=== PATIENT | female | born 1980 ===

== ENCOUNTER 2020-05-26 09:49 | Outpatient (REF) | payer OTHER, SELFPAY | END 2020-05-26 09:50 | disposition home or self-care (01) | LOC: HO.LAB 09:49 | PROVIDERS: Visit Provider Internal Medicine | DX: Z20.822 Contact with and (suspected) exposure to COVID-19 (principal) | CPT/HCPCS: 36415; C9803; U0003; U0005 ==

== ENCOUNTER 2020-10-20 15:20 | Emergency (ER) | payer OTHER, SELFPAY ==
[2020-10-20] VITALS (16 sets, daily range): BP systolic 186–226; BP diastolic 102–122; PULSE 65–97; RESP 12–17; TEMP 36.9; O2SAT 98–100; BMI 30.3
--- NOTE | ~2020-10-20 | XR_ITS ---
EXAMINATION: XR CHEST CLINICAL INFORMATION: Chest pain. COMPARISON: Chest 08/11/2015. TECHNIQUE: Frontal view of the chest was obtained. FINDINGS: The lungs are fairly well-expanded and clear of acute process. The heart size and pulmonary vascularity is normal. 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 XR/XR chest 1V IMPRESSION: Unremarkable chest exam. No major change from 08/11/2015.
--- NOTE | 2020-10-20 15:28 | ECG_ITS ---
Test Reason : CHEST PAIN Blood Pressure : / mmHG Vent. Rate : 084 BPM Atrial Rate : 084 BPM P-R Int : 156 ms QRS Dur : 102 ms QT Int : 374 ms P-R-T Axes : 060 016 000 degrees QTc Int : 441 ms Normal sinus rhythm Voltage criteria for left ventricular hypertrophy Abnormal ECG When compared with ECG of 28-AUG-2018 13:45, No significant change was found Referred By: Leona Roberson Electronically Signed By:LAUREN HENRY
--- NOTE | 2020-10-20 15:39 | ED.CHESTPAIN ---
HPI - Chest Pain General Chief Complaint: Chest Pain Stated Complaint: CP S/P 1ST COVID VACC Time Seen by Provider: 10/20/20 15:28 Source: patient Mode of arrival: ambulatory Limitations: no limitations History of Present Illness HPI narrative: 40 yo female with past medical history of fibromyalgia, HTN not currently on medications here with complaints of chest discomfort, headache and throat itching for 30 minutes. Patient tells me that she received her COVID vaccine at 14:00. This was her 1st vaccine. She received the pfizer vaccine.. Shortly after she developed her symptoms. She received 1 sublingual nitro and Zofran prior to arrival by EMS. She does not feel like this change her pain at all. No radiation of pain in the chest. No associated shortness of breath, cough or palpitations. Denies feeling anxious. No vomiting, diarrhea, itching, rash, tongue or lip swelling or itching. No previous history of allergies. Related Data Home Medications Medication Instructions Recorded Confirmed gabapentin 800 mg tablet 800 mg PO TID 02/06/20 tramadol 50 mg tablet 50 mg PO Q6H PRN 02/11/20 baclofen 10 mg tablet 10 mg PO TID 04/09/20 Previous Rx's Medication Instructions Recorded gabapentin 800 mg tablet 800 mg PO TID #90 tab 02/06/20 clonidine HCl 0.1 mg tablet 0.1 mg PO TID #90 tab 03/16/20 baclofen 10 mg tablet 10 mg PO TID #90 tab 04/09/20 gabapentin 800 mg tablet 800 mg PO TID 30 Days #90 tab 06/22/20 amitriptyline 10 mg tablet 10 mg PO BEDTIME 90 Days #90 tab 07/12/20 tramadol 50 mg tablet 50 mg PO Q4-6H PRN 30 Days #180 tab 09/20/20 amlodipine [Norvasc] 5 mg PO DAILY #14 tab 10/20/20 metoprolol tartrate [Lopressor] 25 mg PO DAILY #14 tab 10/20/20 zolpidem 12.5 mg tablet,extended 12.5 mg PO BEDTIME PRN 30 Days #30 10/20/20 release,multiphase tab Allergies Allergy/AdvReac Type Severity Reaction Status Date / Time No Known Allergies Allergy Unverified 12/12/19 16:53 non known allergies Allergy Unknown Uncoded 07/05/18 00:00 Review of Systems Review of Systems: Yes all other systems are reviewed and are negative Constitutional: Constitutional: Reports no additional constitutional complaints, Denies body ache(s), Denies chills, Denies fever(s), Reports headache(s) and Denies weakness Eyes: Eyes: Reports no additional eye complaints and Denies change in vision ENT: Reports system reviewed and no additional complaints, except as documented, Denies dizziness, Reports headache(s), Denies nasal congestion, Denies nasal discharge and Denies neck pain Comments: throat itching Cardiovascular: Cardiovascular: Reports no additional cardiovascular complaints, Reports chest pain, Denies leg edema and Denies dyspnea Respiratory: Respiratory: Reports no additional respiratory complaints, Denies cough and Denies dyspnea Gastrointestinal: Gastrointestinal: Reports no additional gastrointestinal complaints, Denies abdominal pain, Denies diarrhea, Denies nausea and Denies vomiting Genitourinary: Genitourinary: Reports no additional female genitourinary complaints and Denies urinary incontinence Musculoskeletal: Musculoskeletal: Reports no additional musculoskeletal complaints, Denies back pain, Denies arthralgias, Denies joint swelling, Denies neck pain, Denies numbness and Denies tingling Integumentary/Breasts: Skin/Breast: Reports system reviewed and no additional complaints, except as docu and Denies rash Neurologic: Reports system reviewed and no additional complaints, except as documented, Denies Abnormal speech present, Denies dizziness, Reports headache(s), Denies numbness, Denies tingling and Denies weakness PMFSH Past Medical History Attestation statement: The following information was validated with the patient. Source: old records reviewed and nursing notes reviewed Social History Social History Advance Directives: No Advance Directives Information Provided: No Physical Exam Vital Signs: Vital Signs: Last Vital Signs Temp 98.4 F 10/20/20 15:26 Pulse 74 10/20/20 22:59 Resp 16 10/20/20 22:59 BP 205/111 H 10/20/20 22:59 Pulse Ox 99 10/20/20 22:59 Body Mass Index 30.3 Const: General: cooperative, healthy appearing, comfortable and no acute distress Orientation/consciousness: patient oriented x3 Limitations: no limitations HENMT: Head: Yes normal to inspection Ears: hearing grossly normal bilaterally General nose exam: Normal external nose present Face and sinus: Yes normal facial exam Mouth: Normal oral and palatal mucosa present Throat: Yes posterior oropharynx normal Eyes: General: appearance normal, both eyes and all related structures Pupils: Equal, round and reactive pupils present Neck: Neck: Yes normal visual inspection Chest: Other: Right chest worsened with deep breathing Chest palpation & inspection: normal inspection of the chest Resp: Effort & Inspection: normal respiratory effort Auscultation: clear to auscultation bilaterally Cardio: Rate: regular rate Rhythm: regular rhythm Peripheral pulses: Peripheral pulses 2+ throughout GI: Inspection: Yes normal to inspection Palpation (GI): Soft to palpation and nontender Auscultation: normal bowel sounds Back/Spine/Pelvis: Thoracic/Lumbar Spine: thoracic and lumbar spine normal to inspection Skin: General skin exam: no rashes or lesions noted Neuro: General: patient oriented x3, no focal motor deficits and normal sensation to monofilament Cranial nerves: Yes Equal, round and reactive pupils present Cognition (Neuro): normal cognition Speech: No Abnormal speech present Gait exam (Neuro): Normal gait present Motor exam (neuro): 5/5 motor strength present throughout Extrem: General: Yes normal to inspection, Yes no pedal edema and Yes no calf tenderness Course Course Course Narrative: 40-year-old female here with complaints of right chest pain, generalized headache and throat itching after receiving her COVID vaccine. ?anxiety. No other symptoms concerning for anaphylaxis. Also noted to be hypertensive (off medications for years). Received sublingual nitro prior to arrival with no improvement of symptoms. Will give EKG, CXR, labs. Provide toradol, benadryl and re-assess. 1650-EKG shows LVH with no new changes. Her initial troponin is 19. This is likely a troponin leak from uncontrolled hypertension. Pain is mild after 30 mg of IV Toradol now rated 2/10. Less likely ACS. However, will check a repeat troponin in 3 hours. More importantly the blood pressure is still elevated even with improvement of symptoms. This is likely chronic hypertension which is uncontrolled. No headache or vomiting concerning for hypertensive crisis. Will give aspirin 324 mg, place nitro paste on chest for blood pressure control, give p.o. Lopressor and repeat in 1 hour as needed. Labs show microcytic anemia-patient tells me this is chronic. Seem by hematology several times. Thought to be combination of both OUMOU and B12 deficiency. Patient has not been taking her iron/B12 supplements. 1830-2nd troponin delta (likely chronically elevated from uncontrolled hypertension). EKG unchanged. Goal blood pressure 180/95. Current blood pressure 186/105. Will repeat dose of Lopressor. Plan for dispo home after. 2100-Unfortunately no change in blood pressure. Patient is asymptomatic at this time. Serial EKG's unchanged. Discussed with Dr Deal. Plan for norvasc trial and following BP. 2300-Sign out to Dr Deal pending re-evaluation. MDM - Chest Pain MDM Narrative Medical decision making narrative: anxiety, acs, hypertensive crisis, allergic reaction Medical Records Data Attestation: I reviewed the patient's medical records. Lab Data Attestation: I reviewed the patient's lab results. Result diagrams: 10/20/20 15:59 10/20/20 16:15 Labs: Lab Results 10/20/20 10/20/20 10/20/20 Range/Units 15:59 15:59 15:59 WBC 7.9 (4.8-10.8) X10*3/uL RBC 4.85 (4.20-5.50) X10*6/uL Hgb 9.5 L (12.0-16.0) g/dl Hct 32.3 L (37-47) % MCV 66.6 L (80-98) fL MCH 19.6 L (27.0-33.0) pg MCHC 29.4 L (31.0-35.0) g/dl RDW 17.4 H (11.0-16.0) % Plt Count 376 (160-400) X10*3/uL MPV 9.7 (9.4-12.3) fL Immature Gran % (Auto) 0.3 (0.0-0.4) % Neut % (Auto) 62.4 (45-73) % Lymph % (Auto) 31.5 (20-40) % [place] % (Auto) 5.0 (2-11) % Eos % (Auto) 0.4 (0-4) % Baso % (Auto) 0.4 (0-2) % Lymph # (Auto) 2.5 (1.2-4.9) X10*3/uL [place] # (Auto) 0.4 (0.1-1.2) X10*3/uL Eos # (Auto) 0.0 (0.0-0.4) X10*3/uL Baso # (Auto) 0.0 (0.0-0.2) X10*3/uL Abs Immat Gran (auto) 0.02 (0.00-0.03) X10*3/uL Absolute Neuts (auto) 5.0 (2.0-8.3) X10*3/uL Absolute Nucleated RBC 0.000 (0.0-0.012) X10*3/uL Nucleated RBC % (auto) 0.0 (0.0-0.2) /100WBC PT (9.9-13.0) SEC INR (0.9-1.1) Sodium (135-145) mmol/L Potassium (3.3-5.1) mmol/L Chloride (96-108) mmol/L Carbon Dioxide (22-29) mmol/L Anion Gap (12-20) BUN (9-16) mg/dL Creatinine (0.5-1.4) mg/dL Estim Creat Clear Calc Estimated GFR Random Glucose (60-115) mg/dL Calcium (8.4-10.2) mg/dL Magnesium (1.6-2.6) mg/dL Total Bilirubin (0.0-1.0) mg/dL Direct Bilirubin (0.0-0.5) mg/dL AST (5-31) U/L ALT (0-31) U/L Alkaline Phosphatase (39-117) U/L Troponin I High Sens 19.9 H* (<3.5-17.0) ng/L Total Protein (6.5-8.0) g/dL Albumin (3.5-5.0) g/dL COVID-19 (ROSANNA) Negative (Negative) COVID-19 Clin Com See Note 10/20/20 10/20/20 10/20/20 Range/Units 15:59 16:15 19:29 WBC (4.8-10.8) X10*3/uL RBC (4.20-5.50) X10*6/uL Hgb (12.0-16.0) g/dl Hct (37-47) % MCV (80-98) fL MCH (27.0-33.0) pg MCHC (31.0-35.0) g/dl RDW (11.0-16.0) % Plt Count (160-400) X10*3/uL MPV (9.4-12.3) fL Immature Gran % (Auto) (0.0-0.4) % Neut % (Auto) (45-73) % Lymph % (Auto) (20-40) % [place] % (Auto) (2-11) % Eos % (Auto) (0-4) % Baso % (Auto) (0-2) % Lymph # (Auto) (1.2-4.9) X10*3/uL [place] # (Auto) (0.1-1.2) X10*3/uL Eos # (Auto) (0.0-0.4) X10*3/uL Baso # (Auto) (0.0-0.2) X10*3/uL Abs Immat Gran (auto) (0.00-0.03) X10*3/uL Absolute Neuts (auto) (2.0-8.3) X10*3/uL Absolute Nucleated RBC (0.0-0.012) X10*3/uL Nucleated RBC % (auto) (0.0-0.2) /100WBC PT 12.3 (9.9-13.0) SEC INR 1.1 (0.9-1.1) Sodium 138 (135-145) mmol/L Potassium 4.0 (3.3-5.1) mmol/L Chloride 106 (96-108) mmol/L Carbon Dioxide 22 (22-29) mmol/L Anion Gap 14 (12-20) BUN 4 L (9-16) mg/dL Creatinine 0.79 (0.5-1.4) mg/dL Estim Creat Clear Calc 95.2 Estimated GFR > 60 Random Glucose 89 (60-115) mg/dL Calcium 9.4 (8.4-10.2) mg/dL Magnesium 2.0 (1.6-2.6) mg/dL Total Bilirubin 0.7 (0.0-1.0) mg/dL Direct Bilirubin 0.3 (0.0-0.5) mg/dL AST 15 (5-31) U/L ALT 11 (0-31) U/L Alkaline Phosphatase 114 (39-117) U/L Troponin I High Sens 25.2 H* (<3.5-17.0) ng/L Total Protein 8.0 (6.5-8.0) g/dL Albumin 4.4 (3.5-5.0) g/dL COVID-19 (ROSANNA) (Negative) COVID-19 Clin Com ECG Data ECG #1: Attestation: I personally reviewed and interpreted this ECG as follows: ECG interpretation date: 10/20/20 ECG interpretation time: 15:44 Interpretation: NSR with rate 84, normal pr, normal qrs, normalqtc LVH repeat 1958-NSR with rate 75, normal AK, normal QRS, QT Discharge Plan Discharge Clinical Impression: Atypical chest pain, Hypertension Patient Disposition: Home, Self-Care Instructions: Chest Pain (ED), Hypertension (ED) Additional Instructions: Your blood pressure is very poorly controlled. When your blood pressure is this uncontrolled can affect her heart and kidneys. It is important that you take blood pressure medication and take it every day. I am giving you a short supply of blood pressure medication and then you need to follow-up with her primary care doctor for further prescription. For your next dose of vaccine you need to let them know what happened Prescriptions: New metoprolol tartrate [Lopressor] 50 mg tablet 25 mg PO DAILY Qty: 14 RF: 0 amlodipine [Norvasc] 5 mg tablet 5 mg PO DAILY Qty: 14 RF: 0 No Action gabapentin 800 mg tablet 800 mg PO TID RF: 0 gabapentin 800 mg tablet 800 mg PO TID Qty: 90 RF: 1 tramadol 50 mg tablet 50 mg PO Q6H PRNRF: 0 clonidine HCl 0.1 mg tablet 0.1 mg PO TID Qty: 90 RF: 6 baclofen 10 mg tablet 10 mg PO TID RF: 0 baclofen 10 mg tablet 10 mg PO TID Qty: 90 RF: 0 gabapentin 800 mg tablet 800 mg PO TID 30 Days Qty: 90 RF: 2 amitriptyline 10 mg tablet 10 mg PO BEDTIME 90 Days Qty: 90 RF: 3 tramadol 50 mg tablet 50 mg PO Q4-6H PRN (Reason: pain) 30 Days Qty: 180 RF: 0 zolpidem 12.5 mg tablet,ext release multiphase 12.5 mg PO BEDTIME PRN (Reason: insomnia) 30 Days Qty: 30 RF: 0 Referrals: Lorena Juan MD [Primary Care Provider] - 2 days Everton Yi MD [Physician] - 2 days Stand Alone Forms: Work/School Release
[2020-10-20] MEDS: diphenhydrAMINE HCL 50 MG/ML VIAL 25 MG IVPUSH (15:43)
[2020-10-20] MEDS: Ketorolac Tromethamine 15 MG/ML VIAL 30 MG IVPUSH (15:46)
[2020-10-20 16:03] LABS: MANUAL DIFF FLAG NO
[2020-10-20 16:06] LABS: Basophils Percent Auto 0.4 % (0-2); Eosinophils Percent Auto 0.4 % (0-4); Hematocrit 32.3 % (37-47); Hemoglobin 9.5 g/dl (12.0-16.0); Imm Gran Abs Auto 0.02 X10*3/uL (0.00-0.03); Imm Gran Pct Auto 0.3 % (0.0-0.4); Lymphocytes Absolute Auto 2.5 X10*3/uL (1.2-4.9); Lymphocytes Percent Auto 31.5 % (20-40); Mean Corpuscular HGB Conc 29.4 g/dl (31.0-35.0); Mean Corpuscular Hemoglobin 19.6 pg (27.0-33.0); Mean Corpuscular Volume 66.6 fL (80-98); Mean Platelet Volume 9.7 fL (9.4-12.3); Monocytes Absolute Auto 0.4 X10*3/uL (0.1-1.2); Neutrophils Percent Auto 62.4 % (45-73); Platelet Count 376 X10*3/uL (160-400); Red Blood Count 4.85 X10*6/uL (4.20-5.50); Red Cell Distribution Width 17.4 % (11.0-16.0); White Blood Count 7.9 X10*3/uL (4.8-10.8)
[2020-10-20 16:13] LABS: INTERNATIONAL NORM RATIO 1.1 (0.9-1.1); Prothrombin Time 12.3 SEC (9.9-13.0)
[2020-10-20 16:21] LABS: COVID-19 Test Negative (Negative)
[2020-10-20 16:35] LABS: Troponin-I High Sensitivity 19.9 ng/L (<3.5-17.0)
[2020-10-20 16:52] LABS: Alanine Aminotransferase 11 U/L (0-31); Albumin Level 4.4 g/dL (3.5-5.0); Alkaline Phosphatase 114 U/L (39-117); Anion Gap 14 (12-20); Aspartate Amino Transferase 15 U/L (5-31); Bilirubin Direct 0.3 mg/dL (0.0-0.5); Bilirubin Total 0.7 mg/dL (0.0-1.0); Blood Urea Nitrogen 4 mg/dL (9-16); Calcium 9.4 mg/dL (8.4-10.2); Carbon Dioxide 22 mmol/L (22-29); Chloride 106 mmol/L (96-108); Creatinine Clr Calc Pharmacy 95.2; Estimated Glomerular Filt Rate > 60; Glucose Random 89 mg/dL (60-115); Sodium 138 mmol/L (135-145)
[2020-10-20] MEDS: Aspirin 81 MG TAB.CHEW 324 MG PO (16:58)
[2020-10-20] MEDS: Metoprolol Tartrate 25 MG TABLET PO ×2 (16:58→20:32)
[2020-10-20] MEDS: Nitroglycerin 2 % Oint 1 GM Packet 0.5 INCH TRANSDERMA (17:00)
--- NOTE | 2020-10-20 17:03 | PC.NURSE ---
Patient is sitting up in bed resting quietly. Pt states chest pain is a 3/10. ER provider is also at bedside talking to patient about test results and plan of care.
--- NOTE | 2020-10-20 19:36 | ECG_ITS ---
Test Reason : REPEAT Blood Pressure : / mmHG Vent. Rate : 075 BPM Atrial Rate : 075 BPM P-R Int : 172 ms QRS Dur : 096 ms QT Int : 386 ms P-R-T Axes : 067 028 023 degrees QTc Int : 431 ms Normal sinus rhythm Septal infarct , age undetermined Abnormal ECG When compared with ECG of 20-OCT-2020 15:44, No significant change was found Referred By: Leona Roberson Electronically Signed By:LAUREN HENRY
[2020-10-20 20:10] LABS: Troponin-I High Sensitivity 25.2 ng/L (<3.5-17.0)
[2020-10-20] MEDS: Acetaminophen 325 MG TABLET 650 MG PO (20:32)
--- NOTE | 2020-10-20 20:32 | PC.NURSE ---
NITRO PASTE REMOVED, PER REQUEST OF PROVIDER.
--- NOTE | 2020-10-20 21:29 | ECG_ITS ---
Test Reason : CHEST PAIN Blood Pressure : / mmHG Vent. Rate : 060 BPM Atrial Rate : 060 BPM P-R Int : 178 ms QRS Dur : 104 ms QT Int : 404 ms P-R-T Axes : 052 028 012 degrees QTc Int : 404 ms Normal sinus rhythm with sinus arrhythmia Minimal voltage criteria for LVH, may be normal variant Septal infarct (cited on or before 20-OCT-2020) Abnormal ECG When compared with ECG of 20-OCT-2020 19:59, No significant change was found Referred By: Leona Roberson Electronically Signed By:LAUREN HENRY
[2020-10-20] MEDS: amLODIPine Besylate 5 MG TABLET PO ×2 (22:02→23:05)
[2020-10-21 00:15] VITALS: BP 205/108; PULSE 79; RESP 14; O2SAT 98
== END 2020-10-21 00:15 | disposition home or self-care (01) ==
PROVIDERS: Nurse Practitioner Family; Emergency Provider Emergency Medicine Emergency Medical Services; PCP Internal Medicine
DX: R07.89 Other chest pain (principal); I10 Essential (primary) hypertension; Z20.822 Contact with and (suspected) exposure to COVID-19; R51.9 Headache, unspecified; D50.9 Iron deficiency anemia, unspecified
CPT/HCPCS: 36415; 71045; 80048; 80076; 83735; 84484; 85025; 85610; 87635; 93005; 96374; 96375; 99285; J1200; J1885

== ENCOUNTER 2021-01-05 11:48 | Outpatient (REF) | payer OTHER, SELFPAY | END 2021-01-05 11:49 | disposition home or self-care (01) | LOC: HO.LAB 11:48 | PROVIDERS: PCP Internal Medicine; Visit Provider Internal Medicine | DX: Z20.822 Contact with and (suspected) exposure to COVID-19 (principal) | CPT/HCPCS: C9803; U0003; U0005 ==

== ENCOUNTER 2021-02-03 14:51 | Outpatient (REF) | payer OTHER, SELFPAY | END 2021-02-03 14:52 | disposition home or self-care (01) | LOC: HO.LAB 14:51 | PROVIDERS: Visit Provider Internal Medicine | DX: Z20.822 Contact with and (suspected) exposure to COVID-19 (principal) | CPT/HCPCS: C9803; U0003; U0005 ==

== ENCOUNTER → 2021-02-16 14:28 | Outpatient (BNVA) | payer OTHER, SELFPAY | PROVIDERS: PCP Internal Medicine; Referring Provider Internal Medicine; Visit Provider Internal Medicine | DX: I10 Essential (primary) hypertension (principal); R77.8 Other specified abnormalities of plasma proteins; R94.31 Abnormal electrocardiogram [ECG] [EKG] | CPT/HCPCS: 99202 ==

== ENCOUNTER 2021-04-21 14:35 | Outpatient (REF) | payer OTHER, SELFPAY ==
[2021-04-21 15:01] LABS: Binax Internal Control QC Valid; Binax Now Covid-19 Ag Negative (Negative)
== END 2021-04-21 14:36 | disposition home or self-care (01) ==
LOC: HO.LAB 14:35
PROVIDERS: Visit Provider Internal Medicine
DX: Z20.822 Contact with and (suspected) exposure to COVID-19 (principal)
CPT/HCPCS: C9803

== ENCOUNTER → 2021-05-03 07:31 | Outpatient (REF) | payer OTHER, SELFPAY ==
--- NOTE | 2021-05-03 07:38 | CA_ITS ---
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 Study Quality: Fair ECG Rhythm: Sinus Conclusions: - The left ventricular systolic function is normal. The calculated ejection fraction is 58% by biplane method. - No obvious valvular pathology seen on this study. Findings Left Ventricle Normal left ventricular cavity size. There is mildly increased left ventricular wall thickness. The left ventricular systolic function is normal. The calculated ejection fraction is 58% by biplane method. There is no evidence of regional wall motion abnormalities. Diastolic function is normal for age. Right Ventricle Normal right ventricular cavity size and systolic function. Atria Both atria are normal in size. Aortic Valve There is a normal trileaflet aortic valve. There is no aortic valve stenosis. There is no aortic valve regurgitation. Mitral Valve The mitral valve appears normal. There is trace mitral valve regurgitation. There is no mitral valve stenosis. Pulmonic Valve The pulmonic valve was not well visualized. Tricuspid Valve Normal tricuspid valve structure. There is trace tricuspid valve regurgitation. The pulmonary artery systolic pressure is normal. Great Vessels The aortic annulus, sinuses of valsalva, and asc aorta are normal in size. Venous The inferior vena cava is normal in size and collapses greater than 50% with inspiration. Pericardium/Pleural There is no evidence of pericardial effusion. Prior Study Comparison No significant change compared to prior study dated: 11/06/2015. Recommendations, Care & Conclusions No obvious valvular pathology seen on this study. Measurements 2D Linear Measurements IVSd: 1.05 0.6-0.9/0.6-1.0 cm LVIDd: 3.62 3.9-5.3/4.2-5.9 cm LVIDd Index: 2.01 2.4-3.2/2.2-3.1 cm/m2 LVIDs: 2.19 2.0-3.6 cm LVPWd: 1.06 0.7-1.1 cm Ao Root: 3.00 2.1-3.5 cm LA Diam: 2.90 2.7-3.8/3.0-4.0 cm LAIDs Index: 1.61 1.5-2.3 cm/m2 LV Mass: 146.32 67-162/88-224 g LV Mass Index: 81.29 43-95/49-115 g/m2 LVOT Diam: 2.10 3.0+(-)1.3 cm 2D Systolic Function EF 4C: 56.70 >55% EF 2C: 59.60 >55% EF BiP: 58.30 >55% Mitral Valve MV Pk E: 0.99 MV PK A: 0.73 MV Decel Time: 202.00 E/A: 1.40 E'Lateral: 14.40 E'Medial: 10.30 E/E' Med: 9.60 E/E' Lat: 6.90 PHT: 59.00 MVA PHT: 3.73 Decel Kent: 4.91 Aortic Valve AoV Pk Kike: 1.32 AoV Mn Kike: 0.94 AoV VTI: 0.33 AoV Pk Grad: 7.00 Aov Mn Grad: 4.00 MICHAEL Cont.VTI: 2.24 LVOT LVOT Pk Kike: 0.95 LVOT Mn Kike: 0.62 LVOT VTI: 0.21 LVOT Pk Grad: 4.00 LVOT Mn Grad: 2.00 LVOT Diam: 2.10 LVOT Area: 3.46 Diastolic Function MV Pk E: 0.99 MV Pk A: 0.73 E/A: 1.40 E'Medial: 10.30 E/E' Med: 9.60 E' Laterial: 14.40 E/E' Lat: 6.90 Right Ventricle TAPSE (mm): 30.00 Tricuspid Valve TR Pk Kike: 1.89 TR Pk Grad: 14.00 Great Vessels Aorta Ao Root-2D: 3.00 2.0-3.7 cm Ao Asc: 2.50 2.1-3.4 cm Pulmonary Valve PV Pk Kike: 1.13 Peak PV Grad: 5.00 Updated in Other Vendor System with Status of Final Everton Yi MD electronically signed on 05/03/2021 1:36:48 PM with status of Final
== END ==
LOC: HO.CARD 07:31
PROVIDERS: PCP Internal Medicine; Visit Provider Internal Medicine
DX: I25.10 Atherosclerotic heart disease of native coronary artery without angina pectoris (principal); I10 Essential (primary) hypertension
CPT/HCPCS: 93306

== ENCOUNTER 2021-08-03 19:57 | Emergency (ER) | payer OTHER, SELFPAY ==
--- NOTE | 2021-08-03 | ECG_ITS ---
Test Reason : CP Blood Pressure : / mmHG Vent. Rate : 106 BPM Atrial Rate : 106 BPM P-R Int : 150 ms QRS Dur : 092 ms QT Int : 340 ms P-R-T Axes : 042 -04 117 degrees QTc Int : 451 ms Sinus tachycardia Left ventricular hypertrophy with repolarization abnormality ( R in aVL , Andrew product , Romhilt-Coe ) Abnormal ECG When compared with ECG of 20-OCT-2020 21:38, Vent. rate has increased BY 46 BPM Criteria for Septal infarct are no longer Present Non-specific change in ST segment in Lateral leads T wave inversion now evident in Lateral leads Referred By: Generic ED Physician Electronically Signed By:JUD FRANKLIN MD
--- NOTE | ~2021-08-03 | XR_ITS ---
EXAMINATION: XR CHEST CLINICAL INFORMATION: Chest pain COMPARISON: 10/20/2020 TECHNIQUE: Frontal view of the chest was obtained. FINDINGS: The lungs are well expanded. There is no focal consolidation, edema, or effusion. No pneumothorax. The cardiomediastinal silhouette is within normal limits. No acute osseous abnormality. Multiple small sclerotic foci noted in both humeral heads, unchanged. XR/XR chest 1V IMPRESSION: No acute pulmonary finding.
[2021-08-03 20:13] VITALS: BP 178/116; PULSE 122; RESP 18; TEMP 37.6; O2SAT 99; BMI 21.2
[2021-08-03 22:17] LABS: MANUAL DIFF FLAG NO
[2021-08-03 22:19] LABS: Basophils Percent Auto 0.3 % (0-2); Hematocrit 32.4 % (37.0-47.0); Hemoglobin 9.5 g/dl (12.0-16.0); Imm Gran Abs Auto 0.02 X10*3/uL (0.00-0.03); Imm Gran Pct Auto 0.3 % (0.0-0.4); Lymphocytes Absolute Auto 1.3 X10*3/uL (1.2-4.9); Lymphocytes Percent Auto 21.7 % (20-40); Mean Corpuscular HGB Conc 29.3 g/dl (31.0-35.0); Mean Corpuscular Hemoglobin 19.7 pg (27.0-33.0); Mean Corpuscular Volume 67.1 fL (80.0-98.0); Mean Platelet Volume 9.5 fL (9.4-12.3); Monocytes Absolute Auto 0.7 X10*3/uL (0.1-1.2); Monocytes Percent Auto 11.8 % (2-11); Neutrophils Percent Auto 65.9 % (45-73); Platelet Count 497 X10*3/uL (160-400); Red Blood Count 4.83 X10*6/uL (4.20-5.50); Red Cell Distribution Width 16.8 % (11.0-16.0); White Blood Count 6.1 X10*3/uL (4.8-10.8)
[2021-08-03 22:38] LABS: Alanine Aminotransferase 20 U/L (0-31); Albumin Level 4.3 g/dL (3.5-5.0); Alkaline Phosphatase 106 U/L (39-117); Anion Gap 13 (12-20); Aspartate Amino Transferase 23 U/L (5-31); Bilirubin Total 0.5 mg/dL (0.0-1.0); Blood Urea Nitrogen 5 mg/dL (9-16); Calcium 9.6 mg/dL (8.4-10.2); Carbon Dioxide 23 mmol/L (22-29); Chloride 105 mmol/L (96-108); Creatinine Clr Calc Pharmacy 74.4; Estimated Glomerular Filt Rate > 60; Glucose Random 112 mg/dL (60-115); Potassium 4.5 mmol/L (3.3-5.1); Sodium 136 mmol/L (135-145); Total Protein 8.3 g/dL (6.5-8.0)
--- NOTE | 2021-08-03 22:42 | ED.URI ---
HPI - URI/Sore Throat General Chief Complaint: Upper Respiratory Symptoms Stated Complaint: +covid 5/9 headache,fever Time Seen by Provider: 08/03/21 22:41 Source: patient Mode of arrival: ambulatory Limitations: no limitations History of Present Illness HPI Narrative: Patient history of hypertension diagnosed with COVID-19 yesterday comes here for body aches headache fever also checked her blood pressure was elevated at home. Patient is supposed to be on 3 medication amlodipine 5 mg daily metoprolol 25 mg daily and clonidine 0.1 mg 3 times a day but she is taking clonidine 0.1 mg daily instead of 3 times a day also patient is complaining of heartburn mid chest and epigastric pain since yesterday with dry cough no significant shortness of breath was saturating 99% at room air. Her blood pressure on arrival was 178/116. Related Data Home Medications Medication Instructions Recorded Confirmed hydroxyzine pamoate 25 mg capsule 25 mg PO BID 02/16/21 02/16/21 Previous Rx's Medication Instructions Recorded ferrous sulfate 325 mg (65 mg 325 mg PO DAILY 90 Days #90 tab 12/16/20 iron) tablet,delayed release clonidine HCl 0.1 mg tablet 0.1 mg PO TID #90 tab 12/17/20 gabapentin 800 mg tablet 800 mg PO TID 30 Days #90 tab 03/18/21 baclofen 10 mg tablet 10 mg PO TID #90 tab 04/29/21 metoprolol tartrate 50 mg tablet 25 mg PO DAILY 90 Days #45 tab 05/03/21 (Lopressor) amitriptyline 10 mg tablet 10 mg PO BEDTIME 90 Days #90 tab 07/12/21 amlodipine 5 mg tablet (Norvasc) 5 mg PO DAILY 90 Days #90 tab 07/12/21 tramadol 50 mg tablet 50 mg PO Q4-6H PRN 30 Days #180 tab 07/12/21 zolpidem 12.5 mg tablet,extended 12.5 mg PO BEDTIME PRN 30 Days #30 07/17/21 release,multiphase tab omeprazole 40 mg capsule,delayed 40 mg PO DAILY #30 cap 08/04/21 release Allergies Allergy/AdvReac Type Severity Reaction Status Date / Time non known allergies Allergy Unknown none Uncoded 02/16/21 12:32 Review of Systems Review of Systems: Yes all other systems are reviewed and are negative PMFSH Past Medical History Medical History Abnormal ECG Essential hypertension Fibromyalgia Iron deficiency anemia due to chronic blood loss Primary insomnia Surgical History No pertinent past surgical history Family History Family History Mother No problems noted. Father No problems noted. Social History Social History Housing: Apartment Alcohol intake: never Patient Tobacco Use Status: Former Tobacco user Tobacco use type: Cigarette e-Cigarette/Vaping Use: Never Used Second Hand Smoke Exposure: No Use of substances other than those prescribed or required for medical reasons: No Advance Directives: No Advance Directives Information Provided: No Patient : No service: No Current occupational status: employed Physical Exam Vital Signs: Vital Signs: Last Vital Signs Temp 98.6 F 08/04/21 00:46 Pulse 90 08/04/21 00:46 Resp 18 08/04/21 00:46 BP 161/111 H 08/04/21 00:46 Pulse Ox 98 08/04/21 00:46 BMI result Body Mass Index 21.2 Appearance: Alert. Oriented X3. No acute distress. Eyes: No pallor/ icterus ENT: Pharynx normal. Oral Mucosa moist Neck: Normal inspection. Neck supple. CVS: Normal heart rate and rhythm. Pulses normal. Respiratory: No respiratory distress. Equal air entry bilateral, no wheezing/rales/rhonchi Abdomen: Soft and nontender. Bowel sounds are present, no mass palpable, no CVA tenderness Skin: Skin warm and dry. Normal skin color. Normal skin turgor. Extremities: No lower extremity edema. No calf tenderness Neuro: Oriented X 3. MDM - URI/Sore Throat MDM Narrative Medical decision making narrative: Patient re-educated about dosing of clonidine for blood pressure supposed to take 3 times a day Lab Data Attestation: I reviewed the patient's lab results. Result diagrams: 08/03/21 22:06 08/03/21 22:06 Labs: Lab Results 08/03/21 08/03/21 08/03/21 Range/Units 22:06 22:06 22:06 WBC 6.1 (4.8-10.8) X10*3/uL RBC 4.83 (4.20-5.50) X10*6/uL Hgb 9.5 L (12.0-16.0) g/dl Hct 32.4 L (37.0-47.0) % MCV 67.1 L (80.0-98.0) fL MCH 19.7 L (27.0-33.0) pg MCHC 29.3 L (31.0-35.0) g/dl RDW 16.8 H (11.0-16.0) % Plt Count 497 H (160-400) X10*3/uL MPV 9.5 (9.4-12.3) fL Immature Gran % (Auto) 0.3 (0.0-0.4) % Neut % (Auto) 65.9 (45-73) % Lymph % (Auto) 21.7 (20-40) % Sterling % (Auto) 11.8 H (2-11) % Eos % (Auto) 0.0 (0-4) % Baso % (Auto) 0.3 (0-2) % Lymph # (Auto) 1.3 (1.2-4.9) X10*3/uL Sterling # (Auto) 0.7 (0.1-1.2) X10*3/uL Eos # (Auto) 0.0 (0.0-0.4) X10*3/uL Baso # (Auto) 0.0 (0.0-0.2) X10*3/uL Abs Immat Gran (auto) 0.02 (0.00-0.03) X10*3/uL Absolute Neuts (auto) 4.0 (2.0-8.3) x10*3/uL Absolute Nucleated RBC 0.000 (0.0-0.012) X10*3/uL Nucleated RBC % (auto) 0.0 (0.0-0.2) /100WBC Sodium 136 (135-145) mmol/L Potassium 4.5 (3.3-5.1) mmol/L Chloride 105 (96-108) mmol/L Carbon Dioxide 23 (22-29) mmol/L Anion Gap 13 (12-20) BUN 5 L (9-16) mg/dL Creatinine 0.84 (0.5-1.4) mg/dL Estim Creat Clear Calc 74.4 Estimated GFR > 60 Random Glucose 112 (60-115) mg/dL Calcium 9.6 (8.4-10.2) mg/dL Total Bilirubin 0.5 (0.0-1.0) mg/dL AST 23 D (5-31) U/L ALT 20 (0-31) U/L Alkaline Phosphatase 106 (39-117) U/L Troponin I High Sens 10.3 (<3.5-17.0) ng/L Total Protein 8.3 H (6.5-8.0) g/dL Albumin 4.3 (3.5-5.0) g/dL COVID-19 ([facility]) (Negative) COVID-19 Clin Com 08/03/21 Range/Units 23:19 WBC (4.8-10.8) X10*3/uL RBC (4.20-5.50) X10*6/uL Hgb (12.0-16.0) g/dl Hct (37.0-47.0) % MCV (80.0-98.0) fL MCH (27.0-33.0) pg MCHC (31.0-35.0) g/dl RDW (11.0-16.0) % Plt Count (160-400) X10*3/uL MPV (9.4-12.3) fL Immature Gran % (Auto) (0.0-0.4) % Neut % (Auto) (45-73) % Lymph % (Auto) (20-40) % Sterling % (Auto) (2-11) % Eos % (Auto) (0-4) % Baso % (Auto) (0-2) % Lymph # (Auto) (1.2-4.9) X10*3/uL Sterling # (Auto) (0.1-1.2) X10*3/uL Eos # (Auto) (0.0-0.4) X10*3/uL Baso # (Auto) (0.0-0.2) X10*3/uL Abs Immat Gran (auto) (0.00-0.03) X10*3/uL Absolute Neuts (auto) (2.0-8.3) x10*3/uL Absolute Nucleated RBC (0.0-0.012) X10*3/uL Nucleated RBC % (auto) (0.0-0.2) /100WBC Sodium (135-145) mmol/L Potassium (3.3-5.1) mmol/L Chloride (96-108) mmol/L Carbon Dioxide (22-29) mmol/L Anion Gap (12-20) BUN (9-16) mg/dL Creatinine (0.5-1.4) mg/dL Estim Creat Clear Calc Estimated GFR Random Glucose (60-115) mg/dL Calcium (8.4-10.2) mg/dL Total Bilirubin (0.0-1.0) mg/dL AST (5-31) U/L ALT (0-31) U/L Alkaline Phosphatase (39-117) U/L Troponin I High Sens (<3.5-17.0) ng/L Total Protein (6.5-8.0) g/dL Albumin (3.5-5.0) g/dL COVID-19 ([facility]) Positive A (Negative) COVID-19 Clin Com See Note ECG Data Attestation: I personally reviewed and interpreted this ECG as follows: Interpretation: Sinus tachycardia with heart rate 106 beats per minute LVH no acute ST wave changes no acute ischemia Discharge Plan Discharge Clinical Impression: Essential hypertension, COVID-19 Patient Disposition: Home, Self-Care Instructions: Chronic Hypertension (ED), COVID-19 (Coronavirus Disease 2019) (ED) Additional Instructions: Social distancing as advised Tylenol/Motrin for fever Medication for acid as prescribed Report to the ER if increased shortness of breath Take your medication for blood pressure as prescribed Your blood pressure medications are: Clonidine 0.1 mg 3 times a day Amlodipine 5 mg tablet daily And metoprolol 25 mg daily Distanciamiento social jorge se recomienda Tylenol/Motrin para la fiebre Medicamentos para el ?cido seg?n lo prescrito Informe a la flores de emergencias si aumenta la dificultad para respirar [place] medicamento para la presi?n arterial seg?n lo prescrito Alpa medicamentos para la presi?n arterial son: Clonidina 0,1 mg 3 veces al d?a Amlodipina 5 mg comprimidos diarios Y metoprolol 25 mg diarios Prescriptions: New omeprazole 40 mg capsule,delayed release(DR/EC) 40 mg PO DAILY Qty: 30 2RF No Action clonidine HCl 0.1 mg tablet 0.1 mg PO TID Qty: 90 6RF gabapentin 800 mg tablet 800 mg PO TID 30 Days Qty: 90 2RF baclofen 10 mg tablet 10 mg PO TID Qty: 90 0RF metoprolol tartrate [Lopressor] 50 mg tablet 25 mg PO DAILY 90 Days Qty: 45 1RF tramadol 50 mg tablet 50 mg PO Q4-6H PRN (Reason: pain) 30 Days Qty: 180 0RF amitriptyline 10 mg tablet 10 mg PO BEDTIME 90 Days Qty: 90 3RF amlodipine [Norvasc] 5 mg tablet 5 mg PO DAILY 90 Days Qty: 90 0RF zolpidem 12.5 mg tablet,ext release multiphase 12.5 mg PO BEDTIME PRN (Reason: insomnia) 30 Days Qty: 30 0RF ferrous sulfate 325 mg (65 mg iron) tablet,delayed release (DR/EC) 325 mg PO DAILY 90 Days Qty: 90 1RF hydroxyzine pamoate 25 mg capsule 25 mg PO BID 0RF Interventions: ED Discharge Assessment Last Done: 08/04/21 00:54 Discharge Date/Time: 08/04/21 00:55 Print Language: Malagasy
[2021-08-03 22:45] LABS: Troponin-I High Sensitivity 10.3 ng/L (<3.5-17.0)
[2021-08-03] MEDS: cloNIDine HCL 0.1 MG TABLET PO (22:59)
[2021-08-03] MEDS: Magnesium Hydrox/Alum Hydrox 30 ML ORAL.SUSP PO (22:59)
[2021-08-03] MEDS: Omeprazole 40 MG CAPSULE.DR PO (22:59)
[2021-08-03 23:00] VITALS: BP 192/113; PULSE 99; RESP 16; O2SAT 98
[2021-08-03 23:33] LABS: COVID-19 Test Positive (Negative)
[2021-08-03 23:47] VITALS: RESP 18
[2021-08-04 00:46] VITALS: BP 161/111; PULSE 90; RESP 18; TEMP 37; O2SAT 98
== END 2021-08-04 00:55 | disposition home or self-care (01) ==
PROVIDERS: Emergency Provider Internal Medicine; PCP Internal Medicine
DX: U07.1 COVID-19 (principal); I10 Essential (primary) hypertension; Z79.899 Other long term (current) drug therapy; Z87.891 Personal history of nicotine dependence
CPT/HCPCS: 36415; 71045; 80053; 84484; 85025; 87635; 93005; 99283; 99284

== ENCOUNTER 2022-08-04 13:55 | Outpatient (REF) | payer OTHER, SELFPAY ==
[2022-08-05 09:36] LABS: CT PCR NOT DETECTED (Not Detect.); NG PCR NOT DETECTED (Not Detect.)
[2022-08-05 11:19] LABS: BV Int Neg Control Negative (Negative); BV Int Pos Control Positive (Positive)
[2022-08-09 09:37] LABS: HPV mRNA E6/E7 rflx Not Detected (Not Detected)
== END 2022-08-04 13:56 | disposition home or self-care (01) ==
LOC: HO.LNP 13:55
PROVIDERS: PCP Internal Medicine; Visit Provider Advanced Practice Midwife
DX: Z01.419 Encounter for gynecological examination (general) (routine) without abnormal findings (principal); D50.0 Iron deficiency anemia secondary to blood loss (chronic); N92.6 Irregular menstruation, unspecified; R23.2 Flushing; Z79.899 Other long term (current) drug therapy; Z98.51 Tubal ligation status
CPT/HCPCS: 0353U; 87480; 87510; 87624; 87660; 88142

== ENCOUNTER 2023-08-04 11:30 | Outpatient (AMB) | payer OTHER, SELFPAY ==
[2023-08-04 11:38] VITALS: BP 126/78; PULSE 81; O2SAT 100; BMI 30.2
--- NOTE | 2023-08-04 11:38 | AM.OFFWIN_ITS ---
Intake Vital Signs 08/04/23 11:38 Height 5 ft 3 in Weight 170 lb 4 oz BMI 30.2 BP 126/78 Blood Pressure Location Lt brachial Position Sitting Pulse 81 Pulse Source Pulse Oximeter Pulse Oximetry (%) 100 Oxygen Delivery Method Room Air Intake Visit Reasons: EST/ left knee pain (lobby) Intake Note: Pt presents to the office today for c/o left knee pain that started about 4 months ago with no known injury. She states within the past 4 months it has gotten worse. Patient Tobacco Use Status: Former Tobacco user Allergies non known allergies Allergy (Unknown, Uncoded 08/04/23 11:42) none HPI HPI Comments History of Present Illness Details 43 y/o female patient with c/o left knee pain x 4 months. Denies injury or trauma. 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 [facility] Medical History (Updated 08/11/22 @ 16:01 by Joy Lowery CNM) Iron deficiency anemia due to chronic blood loss Abnormal ECG Fibromyalgia Primary insomnia Essential hypertension Surgical History (Updated 08/04/22 @ 14:06 by Terrell Pickard CMA) Hx of tubal ligation No pertinent past surgical history Family History Mother No problems noted. Father No problems noted. Social History Household Members: Significant Other and Children Housing: Apartment Alcohol intake: never Patient Tobacco Use Status: Former Tobacco user Tobacco use type: Cigarette e-Cigarette/Vaping Use: Never Used Second Hand Smoke Exposure: No service: No Current occupational status: employed Cognitive needs: No Hearing needs: No Vision needs: No Female Reproductive History Menstrual Age of Menarche: 18 Review of Systems Const All systems reviewed & are unremarkable except as noted in HPI and below Physical Exam Vital Signs: Last Vital Signs Pulse 81 08/04/23 11:38 BP 126/78 08/04/23 11:38 Pulse Ox 100 08/04/23 11:38 Oxygen Delivery Method Room Air 08/04/23 11:38 BMI result Body Mass Index 30.2 Const General: comfortable and no acute distress Orientation/consciousness: patient oriented x3 Neuro General: patient oriented x3, No gait normal, moves all extremities and other (Walks with a slight limp) Motor exam (neuro): 5/5 motor strength present throughout Extrem Left lower extremity: normal to inspection, full ROM and knee Details: tenderness Location: of the patella Details: laterally and normal ROM; no swelling, no deformity and no unusual warmth Psych Speech and movement: Normal speech and movement present Assessment & Plan Assessment & Plan (1) Left knee pain: Code(s): M25.562 - Pain in left knee Qualifiers: Chronicity: acute Qualified Code(s): M25.562 - Pain in left knee Plan: - Left Knee Xray - Provided Knee Brace - Ibuprofen/Acetaminophen for pain relief - Rest Medications: New acetaminophen 1,000 mg (2 x 500 mg) PO Q6H PRN 30 caps 0RF pain M25.562 - Pain in left knee lidocaine 5% leave on most painful area for up to 12 hrs 1 patch topical DAILY 30 ea 0RF M25.562 - Pain in left knee Coding Level of Care Code Est Pt Level 3 (99163) Diagnoses Acute pain of left knee M25.562 Chronicity: acute Time Spent (min) 15
== END 2023-08-04 13:02 | disposition home or self-care (01) ==
PROVIDERS: PCP Internal Medicine; Visit Provider Nurse Practitioner Family
DX: M25.562 Pain in left knee (principal)
CPT/HCPCS: 99213

== ENCOUNTER 2023-08-04 12:02 | Outpatient (REF) | payer OTHER, SELFPAY ==
--- NOTE | ~2023-08-04 | XR_ITS ---
EXAMINATION: XR KNEE, LEFT CLINICAL INFORMATION: Left knee pain for 4 months COMPARISON: X-ray left knee on 06/25/2009 TECHNIQUE: Four views of the left knee. FINDINGS: BONES: Bony structures are intact. Unchanged multiple focal sclerotic lesions are seen in distal left femur and proximal left tibia and left fibular head. There is no focal bone destruction or periosteal reaction seen. JOINTS: Alignment of joints is normal. SOFT TISSUE: Soft tissue is normal. No radiopaque foreign body or abnormal air collection is seen. XR/XR knee LT 4V IMPRESSION: 1. Unchanged osteopoikilosis. 2. No fracture or dislocation or signs of osteomyelitis are found.
== END 2023-08-04 12:03 | disposition home or self-care (01) ==
LOC: HO.HMGCX 12:02
PROVIDERS: PCP Internal Medicine; Visit Provider Nurse Practitioner Family
DX: M25.562 Pain in left knee (principal)
CPT/HCPCS: 73564

== ENCOUNTER 2023-08-27 11:23 | Outpatient (REF) | payer OTHER, SELFPAY ==
--- NOTE | ~2023-08-27 | MR_ITS ---
EXAMINATION: MR KNEE WITHOUT CONTRAST, LEFT CLINICAL INFORMATION: Left knee pain and swelling. COMPARISON: Left knee radiographs dated 08/04/2023. TECHNIQUE: MRI of the knee without contrast was performed using routine sequences on a high-field scanner. FINDINGS: MENISCI: Medial Meniscus: Intact. Lateral Meniscus: Intact. LIGAMENTS: Cruciate: Intact. Collateral: Intact. EXTENSOR MECHANISM: Intact quadriceps and patellar tendons. Normal patellofemoral alignment. ARTICULAR CARTILAGE/BONE: Patellofemoral Compartment: Patellar median ridge and medial patellar facet focal full-thickness fissuring with minimal subchondral cystic change. Tiny patellar marginal osteophytes. Medial Compartment: Intact articular cartilage. Lateral Compartment: Intact articular cartilage. Multiple tiny bone islands redemonstrated within the femur, proximal tibia, proximal fibula, consistent with osteopoikilosis as seen on the prior radiographs. JOINT FLUID AND BURSAE: Small joint effusion. MR/MR knee LT wo con IMPRESSION: 1. No acute meniscal or ligamentous injury. 2. Minimal patellofemoral arthrosis. 3. Small joint effusion.
== END 2023-08-27 11:24 | disposition home or self-care (01) ==
LOC: HO.MRI 11:23
PROVIDERS: PCP Internal Medicine; Visit Provider Internal Medicine
DX: Q78.8 Other specified osteochondrodysplasias (principal)
CPT/HCPCS: 73721

== ENCOUNTER 2023-08-28 13:55 | Outpatient (AMB) | payer OTHER, SELFPAY ==
--- NOTE | 2023-08-28 14:09 | MHC.OFFVIS ---
Vital Signs 08/28/23 14:12 Height 5 ft 3 in Weight 170 lb BMI 30.1 Intake Visit Reasons: [employer]-Left knee pain-PCP referral Intake Note: Casie is a 43 year old female who presents today as a new patient with complaints of right knee pain. Patient reports ongoing atraumatic pain for about 5 months now.The pain is felt at the base of the patella and in the posterior aspect. Her pain is worsened wiht prolonged walking and she finds relief with rest, as well as tramadol and Tramadol. She explains that the Tramadol and Tylenol only provide mild relief. MRI done at [facility] 08/27/23 Allergies non known allergies Allergy (Unknown, Uncoded 08/04/23 11:42) none HPI HPI [employer]-Left knee pain-PCP referral: Details: Left knee pain off and on for years but over the past several months it has worsened. She describes pain with stairs and extended standing. Most of her pain is behind the patella. She denies injury and has not been treated. She does not take medicine for this. [facility] Medical History (Updated 08/29/23 @ 16:35 by Ike Gray MD) Iron deficiency anemia due to chronic blood loss Abnormal ECG Fibromyalgia Primary insomnia Essential hypertension Surgical History (Updated 08/04/22 @ 14:06 by Terrell Pickard CMA) Hx of tubal ligation No pertinent past surgical history Family History Mother No problems noted. Father No problems noted. Social History Household Members: Significant Other and Children Housing: Apartment Alcohol intake: never Patient Tobacco Use Status: Former Tobacco user Tobacco use type: Cigarette e-Cigarette/Vaping Use: Never Used Second Hand Smoke Exposure: No service: No Current occupational status: employed Cognitive needs: No Hearing needs: No Vision needs: No Female Reproductive History Menstrual Age of Menarche: 18 Physical Exam Vital Signs: BMI result Body Mass Index 30.1 Const General: cooperative, healthy appearing, no acute distress, well developed and alert HEENT Head: Yes normal to inspection, Yes normocephalic and Yes atraumatic Mouth: moist mucous membranes Eyes General: appearance normal, both eyes and all related structures EOM: EOMs intact bilaterally Chest Other: no audible wheezing. Resp Other: No audible wheezing Effort & Inspection: normal respiratory effort Back/Spine/Pelvis Cervical Spine: normal cervical lordosis Skin General skin exam: no rashes or lesions noted Neuro General: no focal motor deficits Extrem Other: + dynamic step down Lateral retropatellar ttp No effusion No joint line tenderness Psych Appearance: grossly normal and well kempt Mental Status: mental status grossly normal Speech and movement: Normal speech and movement present Affect: normal affect Attitude: cooperative Results Reviewed Results Reviewed: I personally reviewed the MR images. Mild lateral patellar tilt. I personally reviewed relevant radiographs. Mild lateral patellar tilt Assessment & Plan Assessment & Plan (1) Fibromyalgia: Code(s): M79.7 - Fibromyalgia Category: Medical Plan: Exacerbating her knee pain (2) Patellofemoral pain syndrome of left knee: Code(s): M22.2X2 - Patellofemoral disorders, left knee Category: Medical Plan: Left knee with lateral patellar tilt and mild maltracking. Lateral bolster brace and PT. Orders: Orders PT Evaluation and Treatment Today M22.2X2 - Patellofemoral disorders, left knee Coding Level of Care Code New Pt Level 3 (45795) Diagnoses Fibromyalgia M79.7 Patellofemoral pain syndrome of left knee M22.2X2
[2023-08-28 14:12] VITALS: BMI 30.1
== END 2023-08-28 16:00 | disposition home or self-care (01) ==
PROVIDERS: PCP Internal Medicine; Visit Provider Orthopaedic Surgery
DX: M79.7 Fibromyalgia (principal); M22.2X2 Patellofemoral disorders, left knee
CPT/HCPCS: 99203

== ENCOUNTER → 2023-08-28 13:55 | Outpatient (BNVA) | payer OTHER, SELFPAY | PROVIDERS: PCP Internal Medicine; Visit Provider Orthopaedic Surgery | DX: M79.7 Fibromyalgia (principal); M22.2X2 Patellofemoral disorders, left knee | CPT/HCPCS: 99202 ==

== ENCOUNTER 2023-09-25 14:40 | Outpatient (AMB) | payer OTHER, SELFPAY ==
[2023-09-25 14:59] VITALS: BP 142/101; PULSE 82; O2SAT 100
--- NOTE | 2023-09-25 14:59 | A.OFFPC_ITS ---
Vital Signs 09/25/23 14:59 Height 5 ft 3 in Weight 169 lb 8 oz BMI 30.0 BP 142/101 H Blood Pressure Location Lt brachial Position Sitting Pulse 82 Pulse Source Pulse Oximeter Pulse Oximetry (%) 100 Oxygen Delivery Method Room Air Intake Visit Reasons: Pain in right shoulder Environmental Intern Required: No Accompanied by: Self / Same As Patient Allergies non known allergies Allergy (Unknown, Uncoded 09/25/23 15:10) none Medication List - Last Reconciled 09/25/23 by Lorena Figueredo MD acetaminophen 1,000 mg (2 x 500 mg) PO Q6H PRN amitriptyline 10 mg PO BEDTIME 90 days amlodipine (Norvasc) 5 mg PO DAILY 90 days baclofen 10 mg PO TID clonidine HCl 0.1 mg PO TID cyanocobalamin (vitamin B-12) (Vitamin B-12) 1,000 mcg PO DAILY ferrous sulfate 325 mg PO DAILY 90 days gabapentin 800 mg PO TID 30 days hydroxyzine pamoate 25 mg PO BID lidocaine 5% 1 patch topical DAILY metoprolol tartrate (Lopressor) 25 mg (1/2 x 50 mg) PO DAILY 90 days omeprazole 40 mg PO DAILY tramadol 50 mg PO Q4-6H PRN 30 days zolpidem ER 12.5 mg PO BEDTIME PRN 30 days Tobacco use date assessed: 09/25/23 Dental Screening Dental Screen Date: 09/25/23 Did you have a dental visit in the last 12 months?: Yes Did you have a dental problem in the last 6 months where you did not have access to dental care?: No Was dental information given to patient?: Patient has dentist HPI HPI Comments History of Present Illness Details This is a 43-year-old female with hypertension, insomnia and fibromya lgia that complains of left shoulder pain that started about a month ago with limited range of motion. She denies any previous trauma. 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 Blood pressure elevated and will be recheck in 3 weeks by nurse navigator. Insomnia stable with zolpidem. On gabapentin for her fibromyalgia. No chest pain or shortness on breath. [facility] Medical History (Updated 09/25/23 @ 15:27 by Lorena Figueredo MD) Iron deficiency anemia due to chronic blood loss Abnormal ECG Fibromyalgia Primary insomnia Essential hypertension Surgical History Hx of tubal ligation No pertinent past surgical history Family History Mother No problems noted. Father No problems noted. Social History Household Members: Significant Other and Children Housing: Apartment Alcohol intake: never Patient Tobacco Use Status: Former Tobacco user Tobacco use type: Cigarette e-Cigarette/Vaping Use: Never Used Second Hand Smoke Exposure: No service: No Current occupational status: employed Cognitive needs: No Hearing needs: No Vision needs: No Female Reproductive History Menstrual Age of Menarche: 18 Questionnaire PHQ-9 Over the last 2 weeks, how often have you been bothered by any of the following problems? 1. Little interest or pleasure in doing things: not at all 2. Feeling down, depressed, or hopeless: not at all 3. Trouble falling or staying asleep, or sleeping too much: not at all 4. Feeling tired or having little energy: not at all 5. Poor appetite or overeating: not at all 6. Feeling bad about yourself - or that you are a failure or have let yourself or your family down: not at all 7. Trouble concentrating on things, such as reading the newspaper or watching television: not at all 8. Moving or speaking so slowly that other people could have noticed. Or the opposite - being so fidgety or restless that you have been moving around a lot more than usual: not at all 9. Thoughts that you would be better off or of hurting yourself in some way: not at all Total score: 0 Depression Screening Interpretation: Negative Depression Screening Done: Yes 83236 - PHQ-9 Billing: Yes Source: Developed by Drs. Helder Fernandez, Nora Mendoza, Nhan Fitzgerald and colleagues, with an educational nayana from [employer]. Thrive Questionnaire Date Thrive assessed: 09/25/23 I am a: Patient What is your living situation today?: I have a steady place to live Within the past 12 months, did the food you bought not last and you didn't have the money to get more?: Never true Within the past 12 months, did you worry whether your food would run out before you got money to buy more?: Never true Do you have trouble paying for medicines?: No Do you have trouble getting transportation to medical appointments?: No Do you have trouble paying your heating and electricity bill?: No Do you have trouble taking care of your child, family member or friend?: No Do you have trouble with day-to-day activities such as bathing, preparing meals, shopping, managing finances, etc.?: No Are you currently unemployed and looking for a job?: No Are you interested in more education?: No Please select the resources that you would like help with: None Currently or been in a relationship where the following occur: No concerns reported THRIVE Score: 0 AUDIT C Alcohol Use Questionnaire (AUDIT-C) 1. How often do you have a drink containing alcohol?: Never Total Score: 0 Score Reviewed/Action Taken: No OBEY-7 AMB Questionnaire OBEY-7 Date OBEY - 7 assessed: 09/25/23 Feeling nervous, anxious, or on edge: 0 = Not at all Not being able to stop or control worryin = Not at all Worrying too much about different things: 0 = Not at all Trouble relaxin = Not at all Being so restless that it is hard to sit still: 0 = Not at all Becoming easily annoyed or irritable: 0 = Not at all Feeling afraid as if something awful might happen: 0 = Not at all Total OBEY-7 score (0-4 normal; 5-9 mild; 10-14 moderate; 15-21 severe): 0 Source: Developed by Drs. Helder Fernandez, Nora Mendoza, Nhan Fitzgerald and colleagues, with an educational nayana from [employer]. OBEY-7 Assessment Billing OBEY-7 Assessment Tool: OBEY-7 Assessment 40428 Review of Systems Const All systems reviewed & are unremarkable except as noted in HPI and below Card Denies chest pain at rest, Denies chest pain with activity, Denies edema, Denies irregular heart rhythm, Denies claudication, Denies dyspnea, Denies dyspnea on exertion, Denies orthopnea, Denies paroxysmal nocturnal dyspnea and Denies slow heart rate Resp Denies cough, Denies dyspnea and Denies dyspnea on exertion GI Denies abdominal pain, Denies change in bowel habits, Denies excessive flatus, Denies nausea and Denies vomiting Denies urinary incontinence, Denies urinary hesitancy and Denies urinary urgency Musc Denies atrophy, Denies deformity, Reports arthralgias and Reports limited range of motion Physical exam (Primary Care) Vital Signs: Last Vital Signs Pulse 82 09/25/23 14:59 BP 142/10 H 09/25/23 14:59 Pulse Ox 100 09/25/23 14:59 Oxygen Delivery Method Room Air 09/25/23 14:59 BMI result Body Mass Index 30.0 BMI Assessment/Plan discussion: High BMI High, discussed plan: lifestyle, weight reduction, dietary and physical activity Tobacco/Smoking Status: Tobacco use Status Tobacco use date assessed 09/25/23 09/25/23 15:04 Patient Tobacco Use Status Former Tobacco user 09/25/23 15:04 Tobacco use type Cigarette 09/25/23 15:04 e-Cigarette/Vaping Use Never Used 09/25/23 15:04 PHQ-9: PHQ-9 Score PHQ-9: Total score 0 09/25/23 15:04 Depression Screening Interpretation: Negative Thrive Assessment: Date of Thrive Assessment Date Thrive assessed 09/25/23 09/25/23 15:04 Currently or been in a relationship where the following occur: No concerns reported Const General: cooperative Resp Effort & Inspection: normal respiratory effort Auscultation: clear to auscultation bilaterally Cardio Jugular venous distension: no JVD Rate: regular rate Rhythm: regular rhythm Heart sounds: S1 normal heart sound present and S2 normal heart sound present Extrem General: Yes full ROM Left upper extremity: shoulder/upper arm Details: tenderness and abnormal ROM Details: pain with active ROM Details: in ABduction and in extension Assessment and Plan Assessment & Plan (1) Left shoulder pain: Code(s): M25.512 - Pain in left shoulder Qualifiers: Chronicity: acute Qualified Code(s): M25.512 - Pain in left shoulder Plan: X-ray ordered. Start physical therapy. (2) Essential hypertension: Code(s): I10 - Essential (primary) hypertension Plan: Continue clonidine. Blood pressure goal is equal or less than 130/80. (3) Fibromyalgia: Code(s): M79.7 - Fibromyalgia Plan: Continue gabapentin. (4) Primary insomnia: Code(s): F51.01 - Primary insomnia Plan: Continue zolpidem. Orders: Orders XR shoulder LT min 2V Today M25.512 - Pain in left shoulder PT Evaluation and Treatment Today M25.512 - Pain in left shoulder Vitamin D 25-OH Total Today E55.9 - Vitamin D deficiency, unspecified Lipid Panel Today E78.5 - Hyperlipidemia, unspecified, I10 - Essential (primary) hypertension Vitamin B12 and Folate Today E53.8 - Deficiency of other specified B group vitamins MM screening mammo BI Today Z12.31 - Encounter for screening mammogram for malignant neoplasm of breast Comprehensive Ellis. Panel Fast Today I10 - Essential (primary) hypertension Coding Level of Care Code Est Pt Level 4 (61355) Complex EM visit Add On G2211 Diagnoses Acute pain of left shoulder M25.512 Chronicity: acute Essential hypertension I10 Fibromyalgia M79.7 Primary insomnia F51.01 Additional Codes OBEY-7 Assessment Billing - OBEY-7 Assessment Tool: OBEY-7 Assessment 65226 ([id number]) Time Spent (min) 21
== END 2023-09-25 15:20 | disposition home or self-care (01) ==
PROVIDERS: PCP Internal Medicine; Visit Provider Internal Medicine
DX: M25.512 Pain in left shoulder (principal); I10 Essential (primary) hypertension; M79.7 Fibromyalgia; F51.01 Primary insomnia
CPT/HCPCS: 99214; G2211

== ENCOUNTER 2023-10-05 08:15 | Outpatient (REF) | payer OTHER, SELFPAY ==
[2023-10-05 08:39] LABS: MANUAL DIFF FLAG NO
[2023-10-05 09:11] LABS: Basophils Absolute Auto 0.1 X10*3/uL (0.0-0.2); Eosinophils Absolute Auto 0.1 X10*3/uL (0.0-0.4); Eosinophils Percent Auto 2.1 % (0-4); Hematocrit 34.2 % (37.0-47.0); Hemoglobin 10.9 g/dl (12.0-16.0); Imm Gran Abs Auto 0.01 X10*3/uL (0.00-0.03); Imm Gran Pct Auto 0.2 % (0.0-0.4); Lymphocytes Absolute Auto 3.2 X10*3/uL (1.2-4.9); Lymphocytes Percent Auto 51.8 % (20-40); Mean Corpuscular HGB Conc 31.9 g/dl (31.0-35.0); Mean Corpuscular Volume 72.2 fL (80.0-98.0); Monocytes Absolute Auto 0.5 X10*3/uL (0.1-1.2); Monocytes Percent Auto 8.4 % (2-11); Neutrophils Absolute Auto 2.2 x10*3/uL (2.0-8.3); Neutrophils Percent Auto 36.5 % (45-73); Platelet Count 483 X10*3/uL (160-400); Red Blood Count 4.74 X10*6/uL (4.20-5.50); Red Cell Distribution Width 15.9 % (11.0-16.0); White Blood Count 6.1 X10*3/uL (4.8-10.8)
[2023-10-05 09:46] LABS: Alanine Aminotransferase 25 U/L (0-31); Albumin Level 4.1 g/dL (3.5-5.0); Alkaline Phosphatase 87 U/L (39-117); Anion Gap 11 (12-20); Aspartate Amino Transferase 23 U/L (5-31); Bilirubin Total 0.4 mg/dL (0.0-1.0); Blood Urea Nitrogen 10 mg/dL (9-16); Calcium 9.1 mg/dL (8.4-10.2); Carbon Dioxide 25 mmol/L (22-29); Chloride 107 mmol/L (96-108); Cholesterol 210 mg/dL (<200); Estimated Glomerular Filt Rate > 60; Glucose Fasting 102 mg/dL (60-99); HDL Cholesterol 48 mg/dL (>40); Iron 19 mcg/dL (30-160); LDL Cholesterol Calculated 123 mg/dL (<100); Percent Iron Saturation 5 % (15-50); Potassium 4.1 mmol/L (3.3-5.1); Sodium 139 mmol/L (135-145); Total Iron Binding Capacity 357 mcg/dL (228-428); Total Protein 7.4 g/dL (6.5-8.0); Triglycerides 195 mg/dL (<150); Unsaturated Iron Binding 338 ug/dL
[2023-10-05 11:10] LABS: Folate 10.5 ng/mL (> or = 4.0); Vitamin B12 387 pg/mL (200-900)
== END 2023-10-05 08:16 | disposition home or self-care (01) ==
LOC: HO.LAB 08:15
PROVIDERS: PCP Internal Medicine; Visit Provider Internal Medicine
DX: E78.5 Hyperlipidemia, unspecified (principal); E55.9 Vitamin D deficiency, unspecified; E53.8 Deficiency of other specified B group vitamins; I10 Essential (primary) hypertension; D64.9 Anemia, unspecified
CPT/HCPCS: 36415; 80053; 80061; 82306; 82607; 82746; 83540; 85025

== ENCOUNTER 2023-10-11 15:34 | Outpatient (REF) | payer OTHER, SELFPAY ==
--- NOTE | ~2023-10-11 | MM_ITS ---
EXAMINATION: MM SCREENING DIGITAL BREAST TOMOSYNTHESIS, BILATERAL CLINICAL INFORMATION: Screening. Asymptomatic. COMPARISON: Mammography: This is a baseline mammogram. TECHNIQUE: Digital breast tomosynthesis is performed in both the craniocaudal and mediolateral oblique views along with computer-aided detection (CAD). Synthesized 2D images are generated from the tomosynthesis. FINDINGS: There are scattered areas of fibroglandular density (ACR BI-RADS breast composition Category b). There are no significant masses, abnormal calcifications, or other abnormalities. MM/MM tomosynthesis screening BI IMPRESSION: No mammographic evidence of malignancy. ASSESSMENT: BI-RADS BI-RADS 1 - Negative RECOMMENDATION: Routine annual mammography screening. 1 year F/U This examination should not preclude the clinical evaluation of a suspicious palpable abnormality. This patient's information was entered into a reminder system with a target due date for their next mammogram.
--- NOTE | ~2023-10-11 | XR_ITS ---
EXAMINATION: XR SHOULDER, LEFT CLINICAL INFORMATION: Pain without injury. COMPARISON: Prior chest radiographs dated 08/03/2021; left shoulder radiographs dated 06/25/2009. TECHNIQUE: AP external rotation, Grashey, scapular Y, and axillary views of the left shoulder. FINDINGS: Bony alignment and mineralization are normal. Multiple sclerotic foci are again seen within the left humeral head and glenoid process, consistent with osteopoikilosis. The glenohumeral joint is intact. The acromioclavicular and coracoclavicular intervals are normal. No fracture or dislocation is seen. There is no abnormal soft tissue calcification or foreign body. No left pneumothorax is seen. 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 No fracture, dislocation or unusual degenerative change of the left shoulder is seen.
== END 2023-10-11 15:35 | disposition home or self-care (01) ==
LOC: HO.MAMMO 15:34
PROVIDERS: PCP Internal Medicine; Visit Provider Internal Medicine
DX: Z12.31 Encounter for screening mammogram for malignant neoplasm of breast (principal); M25.512 Pain in left shoulder
CPT/HCPCS: 73030; 77063; 77067

== ENCOUNTER → 2023-10-11 15:45 | Outpatient (BNV) | payer OTHER, SELFPAY | PROVIDERS: PCP Internal Medicine; Visit Provider Radiology Diagnostic Radiology | DX: Z12.31 Encounter for screening mammogram for malignant neoplasm of breast (principal) | CPT/HCPCS: 77063; 77067 ==

== ENCOUNTER 2023-11-15 12:00 | Outpatient (RCR) | payer OTHER, SELFPAY ==
--- NOTE | 2023-10-11 14:00 | MHC.PT.EP ---
[facility] [place] Office [place] Office [place] Office [address] William Gabriel [address] [phone] F: [phone] F: [phone] F: [phone] F: [phone] Physical Therapy Plan of Care Date of Evaluation: 10/11/23 Date of Surgery: N/A Diagnosis: left knee pain (RL) Assessment: pt is a 43 y/o female presenting to physical therapy w/ referring diagnosis of left knee pain. Impairments include pain, decreased range of motion, decreased strength, impaired functional mobility, impaired postural awareness, and altered ambulation mechanics. pt is a good candidate for skilled PT due to age, potential remediation of impairments, typical disease/condition progression and prognosis, comorbidities, and motivation. pt would benefit from skilled PT intervention to provide a tailored strengthening and stretching exercise program, functional training, gait training, postural re-training, neuromuscular re-education, modalities as needed for pain, equipment safety demonstration. Frequency and Duration: The patient will be seen 2x/wk for 4 wks Short Term Goals: pt will be I w/ HEP to promote self-management of condition. pt will improve L knee extension by 10 degrees to promote ease in stair navigation. Shelter Goals: pt will perform stair navigation w/ reciprocal pattern for 14 steps to promote ease in accessing bedroom/bathroom. pt will demo proper lifting mechanics for 20# object x5 reps to reduce stress on knees w/ work-related bending/lifting. Treatment Plan: Modalities to reduce pain, spasms and effusion. Manual therapy to restore motion and function. Therapeutic exercise to improve strength and flexibility. Neuromuscular re-education for posture and balance. Therapeutic activities to return to functional activities of daily living. Electronically signed by: Fidelia Hernandez PT, DPT Please sign and return to therapist. Thank you for your referral.
--- NOTE | 2023-11-21 14:32 | MHC.PT.DC ---
[facility] [place] [facility] [place] Office [place] Office [address] William Gabriel 140 [facility] [phone] F: [phone] F: [phone] F: [phone] F: [phone] Physical Therapy Discharge Report Diagnosis: left knee pain (RL) Date of Surgery: N/A Date of Evaluation: 10/11/23 Date of Discharge: 11/21/23 Treatments to Date: 7 Cancellations to Date: 0 No Shows to Date: 0 Discharge Status: Improved Function Independent with HEP Discharge Summary: The patient overall has been reporting less intense and frequent knee pain. She continues to wear a knee brace per her preference. She would like to be discharged for her knee at this time to transition to PT for her shoulder (script acquired, awaiting her to schedule.) The patient is discharged from this physical therapy plan of care per her request. Electronically signed by: Fidelia Hernandez PT, DPT Please sign and return to therapist. Thank you for your referral.
== END 2023-11-21 14:33 | disposition home or self-care (01) ==
LOC: HO.PT 12:00
PROVIDERS: PCP Internal Medicine; Visit Provider Orthopaedic Surgery
DX: M22.2X2 Patellofemoral disorders, left knee (principal)
CPT/HCPCS: 97110; 97162; 97530

== ENCOUNTER 2023-12-05 18:54 | Outpatient (REF) | payer OTHER, SELFPAY ==
--- NOTE | ~2023-12-05 | MR_ITS ---
EXAMINATION: MR SHOULDER WITHOUT CONTRAST, LEFT CLINICAL INFORMATION: Shoulder pain and swelling. COMPARISON: Left shoulder radiographs dated 09/11/2023 . TECHNIQUE: MRI of the shoulder without contrast was performed on a high-field scanner. FINDINGS: ROTATOR CUFF: Minimally increased T2 signal along the supraspinatus myotendinous junction, consistent with minimal tendinosis. No tendon tear. No muscle atrophy or fatty infiltration. BICEPS: Intact. CORACOACROMIAL ARCH: The undersurface of the acromion is flat with lateral downsloping. Mild acromioclavicular arthrosis. Trace fluid within subacromial subdeltoid bursa, consistent with minimal bursitis. LABRUM/CAPSULE: No labral tear. GLENOHUMERAL JOINT/MARROW: Intact articular cartilage. No acute osseous injury. Redemonstration of multiple small bone islands. MR/MR shoulder LT wo con IMPRESSION: 1. Minimal supraspinatus tendinosis without a measurable rotator cuff tendon tear. 2. Mild acromioclavicular arthrosis with lateral downsloping of the acromion. 3. Minimal subacromial subdeltoid bursitis. Electronically signed by: Anthony Dominguez MD 12/07/2023 10:43 AM EDT
== END 2023-12-05 18:55 | disposition home or self-care (01) ==
LOC: HO.MRI 18:54
PROVIDERS: PCP Internal Medicine; Visit Provider Internal Medicine
DX: Q78.8 Other specified osteochondrodysplasias (principal)
CPT/HCPCS: 73221

== ENCOUNTER 2023-12-19 13:51 | Outpatient (AMB) | payer OTHER, SELFPAY ==
--- NOTE | 2023-12-19 13:55 | MHC.OFFVIS ---
Vital Signs 12/19/23 14:01 Height 5 ft 3 in Weight 169 lb BMI 29.9 Intake Visit Reasons: New Pt - left shoulder pain Intake Note: Casie is a 43 year old right hand dominant female who presents today as a new patient for a evaluation of her left shoulder pain, MRI done on 12/05/23. Patient reports ongoing pain for about 2.5 months. Denies injury. She states that her ROM is limited, she uses her hand constantly at her job. She has been attending PT that has been making her pain worse. She has numbness and tingling mostly at night that travels to her hand. Allergies non known allergies Allergy (Unknown, Uncoded 12/19/23 13:59) none HPI HPI New Pt - left shoulder pain: Details: 43-year-old right hand dominant female, who is Cymro speaking, presents in the office today, as a new patient, for an evaluation of left shoulder pain and review of the MRI results. She was seen by her PCP on 09/25/23 with a complaint of one month of left shoulder pain. The patient is in physical therapy and has completed 4 sessions. While in the office today, the patient confirmed ongoing left shoulder pain for about 2.5 months. She reports limited ROM in the left shoulder but denies any known injury. She claims to have numbness and tingling mostly at night that radiates to her left hand. She confirms participating in PT but states this has caused an increase in her pain. [facility] Medical History Iron deficiency anemia due to chronic blood loss Abnormal ECG Fibromyalgia Primary insomnia Essential hypertension Surgical History Hx of tubal ligation No pertinent past surgical history Family History Mother No problems noted. Father No problems noted. 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 Cognitive needs: No Hearing needs: No Vision needs: No Female Reproductive History Menstrual Age of Menarche: 18 Review of Systems Const All systems reviewed & are unremarkable except as noted in HPI and below Physical Exam Vital Signs: BMI result Body Mass Index 29.9 Const General: cooperative and no acute distress Orientation/consciousness: patient oriented x3 Resp Effort & Inspection: normal respiratory effort and able to speak in complete sentences Cardio Peripheral pulses: Peripheral pulses 2+ throughout Skin General skin exam: no rashes or lesions noted Neuro General: patient oriented x3 Extrem Other: Left shoulder: Normal to inspection. No ecchymosis, erythema, or edema. Forward flexion and abduction lacking about 25 degrees. Pain along the impingement arc. Very limited external rotation. Negative cross-body reach. 5/5 strength with an empty can. Negative drop arm. NVI. Office Procedures Joint Injection/Aspiration Joint Injection/Aspiration Primary Site: left shoulder Prep: site was prepped using aseptic technique, ethochloride spray was applied and injection warnings given Injected: 80 mg of, DepoMedrol, with 8 mL of (2% plain lido ) and in the subcromial space Approach Used: posterolateral Procedure: The patient tolerated the procedure well, but had some pain with the injection and there was some relief with the local anesthesia Coding 47745 - Large joint Procedure code (CPT) selection complete Assessment & Plan Assessment & Plan (1) Adhesive capsulitis of left shoulder: Code(s): M75.02 - Adhesive capsulitis of left shoulder Category: Medical Plan is a 43-year-old right hand dominant female, who is Cymro speaking, presents in the office today, as a new patient, for an evaluation of left shoulder pain and review of the MRI results. She was seen by her PCP on 09/25/23 with a complaint of one month of left shoulder pain. The patient is in physical therapy and has completed 4 sessions. While in the office today, the patient confirmed ongoing left shoulder pain for about 2.5 months. She reports limited ROM in the left shoulder but denies any known injury. She claims to have numbness and tingling mostly at night that radiates to her left hand. She confirms participating in PT but states this has caused an increase in her pain. The patient was offered a cortisone injection in the left shoulder with 80 mg of Depo-Medrol. The patient was explained the risks, benefits, and alternatives to receiving this injection. After receiving consent for the injection, the patient had the procedure done while in the office today. The patient tolerated the procedure well with no complication. The patient will continue to work with physical therapy. Follow-up will be in 6 weeks, or sooner if needed. MRI of the left shoulder, obtained on 12/05/23, revealed: 1. Minimal supraspinatus tendinosis without a measurable rotator cuff tendon tear. 2. Mild acromioclavicular arthrosis with lateral downsloping of the acromion. 3. Minimal subacromial subdeltoid bursitis. Patient Instructions: Scribed by Marisa Roper medical office administrator, for Eden Jimenez PA-C on 12/19/23 at 2:23 pm EST. Coding Level of Care Code New Pt Level 4 (82975) Complex EM visit Add On G2211 Diagnoses Adhesive capsulitis of left shoulder M75.02 CPT Codes Coding - 82251 Large joint: 51061 - Large joint ([id number])
[2023-12-19 14:01] VITALS: BMI 29.9
== END 2023-12-19 14:49 | disposition home or self-care (01) ==
PROVIDERS: PCP Internal Medicine; Visit Provider Physician Assistant
DX: M75.02 Adhesive capsulitis of left shoulder (principal)
CPT/HCPCS: 20610; 99204

== ENCOUNTER → 2023-12-19 13:51 | Outpatient (BNVA) | payer OTHER, SELFPAY | PROVIDERS: PCP Internal Medicine; Visit Provider Physician Assistant | DX: M75.02 Adhesive capsulitis of left shoulder (principal) | CPT/HCPCS: 20610; 99202; J1010 ==

== ENCOUNTER 2024-01-16 12:00 | Outpatient (RCR) | payer OTHER, SELFPAY ==
--- NOTE | 2023-11-17 15:45 | MHC.PT.EP ---
[facility] [place] Office [place] Office [place] Office [address] William Gabriel [address] [phone] F: [phone] F: [phone] F: [phone] F: [phone] Physical Therapy Plan of Care Date of Evaluation: 11/17/23 Date of Surgery: N/A Diagnosis: LEFT shoulder pain (MD Dx) LEFT shoulder subacromial impingement (PT Dx) (RS) Assessment: Patient is a pleasant, saudi arabian speaking 43 y.o. female who is referred to PT by Dr. Rex Figueredo MD with Dx of L shoulder pain. PT diagnosis is L shoulder impingement. Patient impairments include pain, range of motion in all directions, strength of bilateral upper extremities, deficits in postural control, impaired functional mobility, and alterations in sensation. Patient's current functional limitations are dressing, bathing, toileting, lifting bags, carrying groceries/other light objects, cleaning, and reaching. Patient will benefit from skilled PT to address aforementioned impairments and functional limitations to meet established goals. Pt is a good candidate for PT due to her age, typical progression of her condition, motivation to improve, and modifiable nature of her impairments. Patient is of low complexity for physical therapy due to the typical prognosis of her condition. Frequency and Duration: The patient will be seen 2x/wk for 6 weeks Short Term Goals: 3 weeks Patient demonstrates consistency and independence with HEP to self manage symptoms. Patient will improve L ER by 10deg to facilitate bathing activities. 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 Manual therapy to restore motion and function. Therapeutic exercise to improve strength and flexibility. Neuromuscular re-education for posture and balance. Therapeutic activities to return to functional activities of daily living. Electronically signed by: Choco Dinh, PT, DPT Please sign and return to therapist. Thank you for your referral.
--- NOTE | 2024-01-16 13:51 | MHC.PT.DC ---
[facility] [place] Office [place] Office [address] 140 [facility] [phone] F: [phone] F: [phone] F: [phone] F: [phone] Physical Therapy Discharge Report Diagnosis: LEFT shoulder pain (MD Dx) LEFT shoulder subacromial impingement (PT Dx) (RS) Date of Surgery: N/A Date of Evaluation: 11/17/23 Date of Discharge: 01/16/24 Treatments to Date: 9 Cancellations to Date: No Shows to Date: Discharge Status: Achieved Goals Improved Function Discharge Summary: Casie presents with near full AROM of her L shoulder, only with mild limitation into ER and flexion. She presents with full L shoulder strength without pain. We go through exercises to review her HEP and I give her a stronger resistance band. She feels ready for discharge. Electronically signed by: Choco Dinh, PT, DPT Please sign and return to therapist. Thank you for your referral.
== END 2024-01-16 13:51 | disposition home or self-care (01) ==
LOC: HO.PT 12:00
PROVIDERS: PCP Internal Medicine; Visit Provider Internal Medicine
DX: M25.512 Pain in left shoulder (principal)
CPT/HCPCS: 97110; 97140; 97161; 97530

== ENCOUNTER 2024-01-30 13:14 | Outpatient (AMB) | payer OTHER, SELFPAY ==
--- NOTE | 2024-01-30 13:24 | MHC.OFFVIS ---
Intake Visit Reasons: OV - left shoulder pain, last inj 12/19/23 Intake Note: Casie is a 43 year old female who presents today for a follow up of her left shoulder pain, last injection 12/19/23. Patient reports that the first 2 weeks of getting the injection gave her relief but after her pain returned. She mentions that PT didn't help her at all, she has been trying to do the at home exercises. 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 I last saw the patient in the office on 12/19/23 when she was given a cortisone injection in the left shoulder. She was recommended to continue physical therapy. While in the office today, the patient reports her last cortisone injection in the left shoulder provided relief for the first 2 weeks and her pain returned. She attended physical therapy with no benefit. She has been trying to do home exercises. [facility] Medical History Iron deficiency anemia due to chronic blood loss Abnormal ECG Fibromyalgia Primary insomnia Essential hypertension Surgical History Hx of tubal ligation No pertinent past surgical history Family History Mother No problems noted. Father No problems noted. 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 Cognitive needs: No Hearing needs: No Vision needs: No Female Reproductive History Menstrual Age of Menarche: 18 Review of Systems Const All systems reviewed & are unremarkable except as noted in HPI and below Physical Exam Const General: cooperative and no acute distress Orientation/consciousness: patient oriented x3 Resp Effort & Inspection: normal respiratory effort and able to speak in complete sentences Cardio Peripheral pulses: Peripheral pulses 2+ throughout Skin General skin exam: no rashes or lesions noted Neuro General: patient oriented x3 Extrem Other: Left shoulder: Normal to inspection. No ecchymosis, erythema, or edema. Forward flexion and abduction lacking about 25 degrees. Pain along the impingement arc. Very limited external rotation. Negative cross-body reach. 5/5 strength with an empty can. Negative drop arm. NVI. Assessment & Plan Assessment & Plan (1) Adhesive capsulitis of left shoulder: Code(s): M75.02 - Adhesive capsulitis of left shoulder Category: Medical Plan Ms. Sprague is a 43-year-old right hand dominant female, who is Surinamese speaking, present in the office today for a left shoulder pain. I last saw the patient in the office on 12/19/23 when she was given a cortisone injection in the left shoulder. She was recommended to continue physical therapy. While in the office today, the patient reports her last cortisone injection in the left shoulder provided relief for the first 2 weeks and her pain returned. She attended physical therapy with no benefit. She has been trying to do home exercises. The patient reports mild relief from the cortisone injection and she has tried and failed physical therapy. Therefore, we will proceed with placing an MRI order of the left shoulder to further evaluate the integrity of the shoulder and surrounding structures. Follow-up will be after the MRI is obtained, or sooner if needed. Orders: Orders MR shoulder LT wo con 01/30/24 M22.2X2 - Patellofemoral disorders, left knee Patient Instructions: Scribed by Marisa Roper medical authorization specialist, for Eden Jimenez PA-C on 01/30/24 at 1:40 pm EST. Coding Level of Care Code Est Pt Level 3 (11836) Diagnoses Adhesive capsulitis of left shoulder M75.02
== END 2024-01-30 13:57 | disposition home or self-care (01) ==
LOC: HO.HOS 13:15
PROVIDERS: PCP Internal Medicine; Visit Provider Physician Assistant
DX: M75.02 Adhesive capsulitis of left shoulder (principal)
CPT/HCPCS: 99213

== ENCOUNTER → 2024-01-30 13:14 | Outpatient (BNVA) | payer OTHER, SELFPAY | PROVIDERS: PCP Internal Medicine; Visit Provider Physician Assistant | DX: M75.02 Adhesive capsulitis of left shoulder (principal) | CPT/HCPCS: 99212 ==

== ENCOUNTER 2024-03-05 15:04 | Outpatient (AMB) | payer OTHER, SELFPAY ==
[2024-03-05 15:09] VITALS: BP 146/90; BMI 29.6
--- NOTE | 2024-03-05 15:09 | MHC.PC.OV ---
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 Accompanied by: Self / Same As Patient Allergies non known allergies Allergy (Unknown, Uncoded 03/05/24 15:19) none Medication List - Last Reconciled 03/05/24 by Lorena Figueredo MD acetaminophen 1,000 mg (2 x 500 mg) PO Q6H PRN amitriptyline 10 mg PO BEDTIME 90 days amlodipine (Norvasc) 5 mg PO DAILY 90 days baclofen 10 mg PO TID clonidine HCl 0.1 mg PO TID cyanocobalamin (vitamin B-12) (Vitamin B-12) 1,000 mcg PO DAILY ferrous sulfate 325 mg PO DAILY 90 days gabapentin 800 mg PO TID 30 days hydroxyzine pamoate 25 mg PO BID lidocaine 5% 1 patch topical DAILY metoprolol tartrate (Lopressor) 25 mg (1/2 x 50 mg) PO DAILY 90 days omeprazole 40 mg PO DAILY tramadol 50 mg PO Q4-6H PRN 30 days zolpidem ER 12.5 mg PO BEDTIME PRN 30 days Tobacco use date assessed: 09/25/23 Dental Screening Dental Screen Date: 09/25/23 HPI HPI Comments History of Present Illness Details The patient is a 43-year-old female presenting for an annual physical examination. She has a history of essential hypertension for which she is currently taking amlodipine and clonidine. Her blood pressure was noted to be borderline today, and she was advised to have it checked in three weeks. Anxiety is also a chronic issue, for which she takes hydroxyzine, and there's an acknowledgment of a bipolar disorder diagnosis, although she is not currently on medication for it. - Cervical cancer screening: Pap smear performed last year, HPV-negative, next due in 5 years. - Breast cancer screening: Mammography conducted in September, results normal. - Blood pressure monitoring: Borderline today, recheck in three weeks. - Laboratory tests: Repetition of cholesterol and hemoglobin A1c advised due to previously slightly elevated cholesterol. - Vaccinations: Patient declined the influenza vaccine for the current year due to personal concerns about illness. [facility] Medical History (Updated 03/05/24 @ 15:34 by Lorena Figueredo MD) Iron deficiency anemia due to chronic blood loss Abnormal ECG Fibromyalgia Primary insomnia Essential hypertension Surgical History (Updated 03/05/24 @ 15:26 by Lorena Figueredo MD) H/O elbow surgery Hx of tubal ligation No pertinent past surgical history Family History (Updated 03/05/24 @ 15:27 by Lorena Figueredo MD) Mother No problems noted. 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 1. Little interest or pleasure in doing things: not at all 2. Feeling down, depressed, or hopeless: not at all 3. Trouble falling or staying asleep, or sleeping too much: several days 4. Feeling tired or having little energy: several days 5. Poor appetite or overeating: not at all 6. Feeling bad about yourself - or that you are a failure or have let yourself or your family down: not at all 7. Trouble concentrating on things, such as reading the newspaper or watching television: not at all 8. Moving or speaking so slowly that other people could have noticed. Or the opposite - being so fidgety or restless that you have been moving around a lot more than usual: not at all 9. Thoughts that you would be better off or of hurting yourself in some way: not at all Total score: 2 Depression Screening Interpretation: Positive Depression Screening Follow-up: Existing condition, In treatment, Community Mental Health Worker F/U and Follow-up Visit Requested Depression Screening Done: Yes 93325 - PHQ-9 Billing: Yes Source: Developed by Drs. Helder Fernandez, Nora Mendoza, Nhan Fitzgerald and colleagues, with an educational nayana from [employer]. Thrive Questionnaire Date Thrive assessed: 09/25/23 I am a: Patient What is your living situation today?: I choose not to answer this question Within the past 12 months, did the food you bought not last and you didn't have the money to get more?: Never true Within the past 12 months, did you worry whether your food would run out before you got money to buy more?: Never true Do you have trouble paying for medicines?: No Do you have trouble getting transportation to medical appointments?: No Do you have trouble paying your heating and electricity bill?: No Do you have trouble taking care of your child, family member or friend?: No Do you have trouble with day-to-day activities such as bathing, preparing meals, shopping, managing finances, etc.?: No Are you currently unemployed and looking for a job?: No Are you interested in more education?: No Please select the resources that you would like help with: None Currently or been in a relationship where the following occur: No concerns reported THRIVE Score: 0 AUDIT C Alcohol Use Questionnaire (AUDIT-C) 1. How often do you have a drink containing alcohol?: Never Total Score: 0 Score Reviewed/Action Taken: No OBEY-7 AMB Questionnaire OBEY-7 Date OBEY - 7 assessed: 09/25/23 Feeling nervous, anxious, or on edge: 1 = Several days Not being able to stop or control worryin = Several days Worrying too much about different things: 1 = Several days Trouble relaxin = Several days Being so restless that it is hard to sit still: 0 = Not at all Becoming easily annoyed or irritable: 2 = More than half the days Feeling afraid as if something awful might happen: 0 = Not at all Total OBEY-7 score (0-4 normal; 5-9 mild; 10-14 moderate; 15-21 severe): 6 Source: Developed by Drs. Helder Fernandez, Nora Mendoza, Nhan Fitzgerald and colleagues, with an educational nayana from [employer]. OBEY-7 Assessment Billing OBEY-7 Assessment Tool: OBEY-7 Assessment 90257 Review of Systems Const All systems reviewed & are unremarkable except as noted in HPI and below Card Denies chest pain at rest, Denies chest pain with activity, Denies edema, Denies irregular heart rhythm, Denies claudication, Denies dyspnea, Denies dyspnea on exertion, Denies orthopnea, Denies paroxysmal nocturnal dyspnea and Denies slow heart rate Resp Denies cough, Denies dyspnea and Denies dyspnea on exertion GI Denies abdominal pain, Denies change in bowel habits, Denies excessive flatus, Denies nausea and Denies vomiting Denies urinary incontinence, Denies urinary hesitancy and Denies urinary urgency Musc Denies abnormal gait, Denies atrophy, Denies deformity and Denies limited range of motion Neuro Denies abnormal gait, Denies behavioral changes and Denies lack of coordination Psych Denies behavioral changes Physical exam (Primary Care) Vital Signs: Last Vital Signs BP 146/90 H 03/05/24 15:09 BMI result Body Mass Index 29.6 Tobacco/Smoking Status: Tobacco use Status Tobacco use date assessed 09/25/23 03/05/24 15:13 Patient Tobacco Use Status Former Tobacco user 03/05/24 15:13 Tobacco use type Cigarette 03/05/24 15:13 e-Cigarette/Vaping Use Never Used 03/05/24 15:13 PHQ-9: PHQ-9 Score PHQ-9: Total score 2 03/05/24 15:13 Depression Screening Interpretation: Positive Depression Screening Follow-up: Existing condition, In treatment, Community Mental Health Worker F/U and Follow-up Visit Requested Thrive Assessment: Date of Thrive Assessment Date Thrive assessed 09/25/23 03/05/24 15:13 Currently or been in a relationship where the following occur: No concerns reported [facility] Head: Yes normal to inspection, Yes normocephalic and Yes atraumatic Ears: external ears normal Eyes General: appearance normal, both eyes and all related structures Eyelids: Yes eyelids normal Conjunctivae: conjunctivae normal Neck Neck: Yes normal visual inspection and Yes supple Resp Effort & Inspection: normal respiratory effort Auscultation: clear to auscultation bilaterally Cardio Jugular venous distension: no JVD Rate: regular rate Rhythm: regular rhythm Heart sounds: S1 normal heart sound present and S2 normal heart sound present GI Inspection: Yes normal to inspection Palpation (GI): Soft to palpation and nontender Auscultation: normal bowel sounds Skin General skin exam: no rashes or lesions noted Neuro General: no focal motor deficits Extrem General: Yes full ROM Psych Appearance: grossly normal Office Procedures Flu Questionnaire Does the patient have a severe egg allergy?: No Immunizations Fluarix Triv [id number] (PF) 45 mcg (15 mcg x 3)/0.5 mL IM syringe Performing Provider: Lorena Figueredo MD [place] [facility] Documented (not given) by: TREV Aguilar on 03/05/24 15:13 Reason Not Given: Patient Refused Coding Level of Care Code Est Pt Prev Care 18-39y(95139) Diagnoses Physical exam Z00.00 Bipolar 1 disorder F31.9 Additional Codes PHQ-9 - 17271 - PHQ-9 Billing: Yes ([id number]) OBEY-7 Assessment Billing - OBEY-7 Assessment Tool: OBEY-7 Assessment 31054 ([id number]) Time Spent (min) 31 Assessment & Plan Assessment & Plan (1) Physical exam: Code(s): Z00.00 - Encounter for general adult medical examination without abnormal findings Category: Medical (2) Bipolar 1 disorder: Code(s): F31.9 - Bipolar disorder, unspecified Category: Medical Plan - Essential Hypertension: Encourage blood pressure monitoring at home, continue current medication regimen, follow-up in three weeks for reevaluation. - Anxiety: Continue hydroxyzine, consider further psychiatric evaluation if symptoms persist or worsen. - Bipolar Disorder: Patient prefers not to pursue medication at this time; monitor symptoms closely and engage in discussion about management options if needed. - Health Maintenance: Reinforce the importance of regular screenings and vaccination updates, addressing patient hesitancies when appropriate. Patient was informed and verbally consented to the use of an ambient scribe for clinic note documentation during this visit. I discussed the patient's border-high blood pressure readings and the importance of monitoring it regularly. I informed her of the necessity to repeat cholesterol testing due to prior slightly elevated results. We addressed her anxiety and bipolar disorder, acknowledging her decision not to pursue medication at this time but maintaining vigilance over symptoms. I explained the importance of vaccinations, including the influenza vaccine, and acknowledged her decision not to receive it. The patient was informed about her screening schedule for cervical and breast cancer, and the significance of follow-up appointments. Orders: Orders Influenza [id number] Immunization Today Z23 - Encounter for immunization Complete Blood Count Auto Diff Today D64.9 - Anemia, unspecified IRON PROFILE Today D64.9 - Anemia, unspecified Lipid Panel Today E78.5 - Hyperlipidemia, unspecified Vitamin D 25-OH Total Today E55.9 - Vitamin D deficiency, unspecified Vitamin B12 and Folate Today E53.8 - Deficiency of other specified B group vitamins Comprehensive [place]. Panel Fast Today Z00.00 - Encounter for general adult medical examination without abnormal findings Medications: Refilled amlodipine (Norvasc) 5 mg PO DAILY 90 days 90 tabs 3RF Patient Instructions: - Monitor blood pressure at home and return for a check-up in three weeks. - Continue current prescribed medication regimen. - Complete recommended lab tests, including cholesterol and hemoglobin A1c. - Be vigilant for any recurrence of carpal tunnel symptoms or significant changes in anxiety or mood. - Follow scheduled health maintenance screenings as advised.
== END 2024-03-05 15:37 | disposition home or self-care (01) ==
PROVIDERS: PCP Internal Medicine; Visit Provider Internal Medicine
DX: Z00.00 Encounter for general adult medical examination without abnormal findings (principal); F31.9 Bipolar disorder, unspecified

== ENCOUNTER → 2024-03-05 15:04 | Outpatient (BNVA) | payer OTHER, SELFPAY | PROVIDERS: PCP Internal Medicine; Visit Provider Internal Medicine | DX: Z00.00 Encounter for general adult medical examination without abnormal findings (principal); F31.9 Bipolar disorder, unspecified | CPT/HCPCS: 96127; 99396 ==

== ENCOUNTER 2024-03-12 11:27 | Outpatient (REF) | payer OTHER, SELFPAY | END 2024-03-12 11:28 | disposition home or self-care (01) | LOC: HO.MRI 11:27 | PROVIDERS: PCP Internal Medicine; Visit Provider Physician Assistant | DX: M75.02 Adhesive capsulitis of left shoulder (principal) | CPT/HCPCS: 73221 ==

== ENCOUNTER → 2024-03-29 12:56 | Outpatient (BNVA) | payer OTHER, SELFPAY | PROVIDERS: PCP Internal Medicine ==

== ENCOUNTER 2024-04-18 13:28 | Outpatient (AMB) | payer OTHER, SELFPAY ==
--- NOTE | 2024-04-18 13:29 | A.OFFVIS_ITS ---
Intake Visit Reasons: Tele - left shoulder MRI review Allergies non known allergies Allergy (Unknown, Uncoded 03/05/24 15:19) none HPI HPI Tele - left shoulder MRI review: Details: Patient was called for a telehealth appointment today in regards to a left shoulder MRI review. While on the phone the patient reports she still continues to have pain. She has tried a cortisone injection back in November which gave her about 1-1/2 weeks of relief. She had been attending multiple sessions of physical therapy and reports minimal relief. [facility] Medical History (Updated 03/05/24 @ 15:34 by Lorena Figueredo MD) Iron deficiency anemia due to chronic blood loss Abnormal ECG Fibromyalgia Primary insomnia Essential hypertension Surgical History (Updated 03/05/24 @ 15:26 by Lorena Figueredo MD) H/O elbow surgery Hx of tubal ligation No pertinent past surgical history Family History (Updated 03/05/24 @ 15:27 by Lorena Figueredo MD) Mother No problems noted. 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 Cognitive needs: No Hearing needs: No Vision needs: No Female Reproductive History Menstrual Age of Menarche: 18 Review of Systems Const All systems reviewed & are unremarkable except as noted in HPI and below Physical Exam Resp Effort & Inspection: able to speak in complete sentences Cardio Peripheral pulses: Peripheral pulses 2+ throughout Skin Lesions: no lesions Rashes: no rashes Extrem Other: Deferred due to telehealth Assessment & Plan Assessment & Plan (1) Adhesive capsulitis of left shoulder: Code(s): M75.02 - Adhesive capsulitis of left shoulder Category: Medical Plan Patient was called for a telehealth appointment today in regards to a left shoulder MRI review. While on the phone the patient reports she still continues to have pain. She has tried a cortisone injection back in November which gave her about 1-1/2 weeks of relief. She had been attending multiple sessions of physical therapy and reports minimal relief. I educated the patient that the MRI findings are consistent with adhesive capsulitis and treatment plan recommended is repeat cortisone injection and continue with formal physical therapy. Patient will rebook an appointment for a cortisone injection in the left shoulder and I have placed a new order for physical therapy. She will follow up for the injection in the next 1-2 weeks, sooner if needed. MRI left shoulder: IMPRESSION: 1. Mild supraspinatus tendinosis. No rotator cuff tear is seen. 2. Mild acromioclavicular arthritis. Trace subacromial subdeltoid bursitis. 3. Findings in the inferior glenohumeral ligament/capsule, could be related to lack of distention versus capsulitis in the appropriate clinical circumstance. Coding Level of Care Code Tele Est Pt Level 3 (27120) Diagnoses Adhesive capsulitis of left shoulder M75.02
== END 2024-04-18 13:29 | disposition home or self-care (01) ==
LOC: HO.HOS 13:28
PROVIDERS: PCP Internal Medicine; Visit Provider Physician Assistant
DX: M75.02 Adhesive capsulitis of left shoulder (principal)
CPT/HCPCS: 99213

== ENCOUNTER → 2024-04-18 13:28 | Outpatient (BNVA) | payer OTHER, SELFPAY | PROVIDERS: PCP Internal Medicine; Visit Provider Physician Assistant ==

== ENCOUNTER 2024-05-07 11:21 | Outpatient (AMB) | payer OTHER, SELFPAY ==
--- NOTE | 2024-05-07 11:25 | A.OFFVIS_ITS ---
Vital Signs 05/07/24 11:37 Height 5 ft 3 in Weight 167 lb BMI 29.6 Handedness Right Intake Visit Reasons: left shoulder inj, last injection 12/19/23 Intake Note: Casie is a 43 year old right hand dominant female who presents today for a injection for her left shoulder, last injection 12/19/23. Patient reports her last injection gave her about a week of relief and would like to repeat with some PT sessions if possible. Allergies non known allergies Allergy (Unknown, Uncoded 03/05/24 15:19) none HPI HPI left shoulder inj, last injection 12/19/23: Details: Ms. Sprague is a 43-year-old female who presents to the office today for continued left shoulder pain. Last cortisone injection was 12/19/2023 and gave her about 1 week of relief. She wishes to repeat the cortisone injection and attempt physical therapy. [facility] Medical History (Updated 03/05/24 @ 15:34 by Lorena Figueredo MD) Iron deficiency anemia due to chronic blood loss Abnormal ECG Fibromyalgia Primary insomnia Essential hypertension Surgical History (Updated 03/05/24 @ 15:26 by Lorena Figueredo MD) H/O elbow surgery Hx of tubal ligation No pertinent past surgical history Family History (Updated 03/05/24 @ 15:27 by Lorena Figueredo MD) Mother No problems noted. 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 Cognitive needs: No Hearing needs: No Vision needs: No Female Reproductive History Menstrual Age of Menarche: 18 Review of Systems Const All systems reviewed & are unremarkable except as noted in HPI and below Physical Exam Const General: cooperative and no acute distress Orientation/consciousness: patient oriented x3 Resp Effort & Inspection: normal respiratory effort and able to speak in complete sentences Cardio Peripheral pulses: Peripheral pulses 2+ throughout Skin General skin exam: no rashes or lesions noted Neuro General: patient oriented x3 Extrem Other: Left shoulder: Normal to inspection. No ecchymosis, erythema, or edema. Forward flexion and abduction lacking about 25 degrees. Pain along the impingement arc. Very limited external rotation. Negative cross-body reach. 5/5 strength with an empty can. Negative drop arm. NVI. Office Procedures AMB Joint Injection/Aspiration Joint Injection/Aspiration Primary Site: left shoulder Prep: site was prepped using aseptic technique, ethochloride spray was applied and injection warnings given Injected: 80 mg of, DepoMedrol, with 8 mL of (2% plain lidocaine) and in the subcromial space Approach Used: posterolateral Procedure: The patient tolerated the procedure well, but had some pain with the injection and there was some relief with the local anesthesia Coding 70605 - Large joint Procedure code (CPT) selection complete Assessment & Plan Assessment & Plan (1) Adhesive capsulitis of left shoulder: Code(s): M75.02 - Adhesive capsulitis of left shoulder Category: Medical Plan Ms. Sprague is a 43-year-old female who presents to the office today for continued left shoulder pain. Last cortisone injection was 12/19/2023 and gave her about 1 week of relief. She wishes to repeat the cortisone injection and attempt physical therapy. The patient was offered a cortisone injection in the left shoulder with 80 mg of DepoMedrol. The patient was explained the risks, benefits, and alternatives to receiving this injection. After receiving consent for the injection, the patient had the procedure done while in the office today. The patient tolerated the procedure well with no complications. I have also placed an order for physical therapy which the patient is agreeable to attend. Follow-up will be p.r.n., or sooner if needed. Orders: Orders PT Evaluation and Treatment Today M75.02 - Adhesive capsulitis of left shoulder Coding Level of Care Code Est Pt Level 3 (81688) Diagnoses Adhesive capsulitis of left shoulder M75.02 CPT Codes Coding - Large joint: 16678 - Large joint ([id number])
[2024-05-07 11:37] VITALS: BMI 29.6
== END 2024-05-07 11:38 | disposition home or self-care (01) ==
PROVIDERS: PCP Internal Medicine; Visit Provider Physician Assistant
DX: M75.02 Adhesive capsulitis of left shoulder (principal)
CPT/HCPCS: 20610; 99213

== ENCOUNTER → 2024-05-07 11:21 | Outpatient (BNVA) | payer OTHER, SELFPAY | PROVIDERS: PCP Internal Medicine; Visit Provider Physician Assistant | DX: M75.02 Adhesive capsulitis of left shoulder (principal) | CPT/HCPCS: 20610; 99212; J1010; J2003 ==

== ENCOUNTER 2024-07-03 12:00 | Outpatient (RCR) | payer OTHER, SELFPAY ==
--- NOTE | 2024-06-04 15:02 | MHC.PT.EP ---
[facility] [place] Office [place] Office [place] Office [address] [phone] F: [phone] F: [phone] F: [phone] F: [phone] Physical Therapy Plan of Care Date of Evaluation: 06/04/24 Date of Surgery: Diagnosis: adhesive capsulitis Assessment: 44 y/o R-hand dominant female referred to PT with L adhesive capsulitis. S/s consistent with L tendinopathy and overlapping cervical dysfunction secondary to mildly decreased shoulder ROM, decreased L shoulder strength, and impaired postural awareness resulting in pain and difficulty with lifting, reaching, carrying, sleeping on L side, and reaching behind back. Recommend PT 2x/week for 4 weeks to address impairments, implement HEP, and optimize functional mobility. 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 Manual therapy to restore motion and function. Therapeutic exercise to improve strength and flexibility. Neuromuscular re-education for posture and balance. Therapeutic activities to return to functional activities of daily living. Electronically signed by: Kamilla Quiles PT Please sign and return to therapist. Thank you for your referral.
--- NOTE | 2024-07-11 08:22 | MHC.PT.DC ---
[facility] [place] Office [place] Office [place] Office [address] [phone] F: [phone] F: [phone] F: [phone] F: [phone] Physical Therapy Discharge Report Diagnosis: adhesive capsulitis Date of Surgery: Date of Evaluation: 06/04/24 Date of Discharge: 07/11/24 Treatments to Date: 6 Cancellations to Date: 1 No Shows to Date: 1 Discharge Status: Recommend MD Follow-up Discharge Summary: She reports feeling no change in sx since starting PT and recommended pt f/u with MD at this time d/t lack of progress. Reviewed importance of neutral posture and use of heat/ice for pain flare-ups as well. She has no increase in sx with exercises during PT however continues no change. She will f/u with MD. Electronically signed by: Kamilla Quiles PT Please sign and return to therapist. Thank you for your referral.
--- NOTE | 2024-07-11 08:23 | MHC.PT.DC ---
[facility] [place] Office [place] Office [place] Office [address] Gabriel [address] [phone] F: [phone] F: [phone] F: [phone] F: [phone] Physical Therapy Discharge Report Diagnosis: adhesive capsulitis Date of Surgery: Date of Evaluation: 06/04/24 Date of Discharge: 07/11/24 Treatments to Date: 6 Cancellations to Date: 1 No Shows to Date: 1 Discharge Status: Recommend MD Follow-up Discharge Summary: She reports feeling no change in sx since starting PT and recommended pt f/u with MD at this time d/t lack of progress. Reviewed importance of neutral posture and use of heat/ice for pain flare-ups as well. She has no increase in sx with exercises during PT however continues no change. She will f/u with MD. Electronically signed by: Kamilla Quiles PT Please sign and return to therapist. Thank you for your referral.
== END 2024-07-11 08:23 | disposition home or self-care (01) ==
LOC: HO.PT 12:00
PROVIDERS: PCP Internal Medicine; Visit Provider Physician Assistant
DX: M75.02 Adhesive capsulitis of left shoulder (principal)
CPT/HCPCS: 97110; 97161; 97530

== ENCOUNTER 2024-10-08 14:54 | Outpatient (AMB) | payer OTHER, SELFPAY ==
--- NOTE | 2024-10-08 15:06 | A.OFFVIS_ITS ---
Intake Visit Reasons: OV- left shoulder inj, last injection 05/07/24 Intake Note: Casie is a 44 year old right hand dominant female who presents today for a follow up of Left Adhesive Capsulitis. Last injection(80mg) was administered to the right shoulder on 05/07/24. Patient had only 3 days or relief with the inj ection and her pain hasn't gotten better with physical therapy. Allergies non known allergies Allergy (Unknown, Uncoded 03/05/24 15:19) none HPI HPI OV- left shoulder inj, last injection 05/07/24: Details: Ms. Sprague is a 44-year-old right-hand dominant female who presents to the office today for left shoulder pain due to adhesive capsulitis that has been present for roughly 1 year. Her last injection was administered on 05/07/2024 and gave her 3 days of relief. Additionally, the patient has tried and failed physical therapy with no improvement PFSH Medical History (Updated 03/05/24 @ 15:34 by Lorena Figueredo MD) Iron deficiency anemia due to chronic blood loss Abnormal ECG Fibromyalgia Primary insomnia Essential hypertension Surgical History (Updated 03/05/24 @ 15:26 by Lorena Figueredo MD) H/O elbow surgery Hx of tubal ligation No pertinent past surgical history Family History (Updated 03/05/24 @ 15:27 by Lorena Figueredo MD) Mother No problems noted. 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 AROM abduction lacking about 30 degrees. Patient is only able to perform about 10 degrees of passive external rotation. 4-5 strength with empty can. Negative drop arm. NVI. Assessment & Plan Assessment & Plan (1) Adhesive capsulitis of left shoulder: Code(s): M75.02 - Adhesive capsulitis of left shoulder Category: Medical Plan Ms. Sprague is a 44-year-old right-hand dominant female who presents to the office today for left shoulder pain due to adhesive capsulitis that has been present for roughly 1 year. She has tried multiple injections in the past. Her last injection was administered on 05/07/2024 and gave her 3 days of relief. Additionally, the patient has tried and failed physical therapy with no improvement. While the office today, the patient is reporting that her range of motion continues to decrease and her pain is increasing. Additionally, she has been experiencing numbness and tingling that goes from her shoulder to her hand and pain that is traveling to her neck. I do believe that the patient is experiencing symptoms of adhesive capsulitis but there may be a neurological component as well. I would like the patient to be evaluated by Dr. Gray since the adhesive capsulitis symptoms have been present for 1 year for evaluation and the possibility of an arthroscopic anterior interval debridement. Coding Level of Care Code Est Pt Level 3 (96886) Diagnoses Adhesive capsulitis of left shoulder M75.02
== END 2024-10-08 15:24 | disposition home or self-care (01) ==
LOC: HO.HOS 14:55
PROVIDERS: PCP Internal Medicine; Visit Provider Physician Assistant
DX: M75.02 Adhesive capsulitis of left shoulder (principal)
CPT/HCPCS: 99213

== ENCOUNTER → 2024-10-08 14:54 | Outpatient (BNVA) | payer OTHER, SELFPAY | PROVIDERS: PCP Internal Medicine; Visit Provider Physician Assistant | DX: M25.512 Pain in left shoulder (principal); M75.02 Adhesive capsulitis of left shoulder | CPT/HCPCS: 99212 ==

== ENCOUNTER 2025-01-27 13:51 | Outpatient (AMB) | payer OTHER, SELFPAY ==
--- NOTE | 2025-01-27 13:53 | A.OFFVIS_ITS ---
Intake Visit Reasons: OV-Left shoulder discuss surgery Intake Note: Casie is a 44 year old right hand dominant female who presents today for a follow up of Left Adhesive Capsulitis. Last injection(80mg) was administered to the right shoulder on 05/07/24. Injections have remained unhelpful. Patient presents today to discuss surgery for the left shoulder. Allergies non known allergies Allergy (Unknown, Uncoded 03/05/24 15:19) none HPI HPI OV-Left shoulder discuss surgery: Details: Casie is a 44 year old right hand dominant female who presents today for a follow up of Left Adhesive Capsulitis. Last injection(80mg) was administered to the right shoulder on 05/07/24. Injections have remained unhelpful. Patient presents today to discuss surgery for the left shoulder. She has been having pain almost year. She has fibromyalgia. She feels like nothing is helping. [facility] Medical History (Updated 03/05/24 @ 15:34 by Lorena Figueredo MD) Iron deficiency anemia due to chronic blood loss Abnormal ECG Fibromyalgia Primary insomnia Essential hypertension Surgical History (Updated 03/05/24 @ 15:26 by Lorena Figueredo MD) H/O elbow surgery Hx of tubal ligation No pertinent past surgical history Family History (Updated 03/05/24 @ 15:27 by Lorena Figueredo MD) Mother No problems noted. 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 When I get her to relax she has 25 degrees of external rotation with mild hip pain. She can abduct to 70 degrees and has a positive Lewis and Neer. Results Reviewed Results Reviewed: I personally reviewed the MR images. IMPRESSION: 1. Mild supraspinatus tendinosis. No rotator cuff tear is seen. 2. Mild acromioclavicular arthritis. Trace subacromial subdeltoid bursitis. 3. Findings in the inferior glenohumeral ligament/capsule, could be related to lack of distention versus capsulitis in the appropriate clinical circumstance Assessment & Plan Assessment & Plan (1) Adhesive capsulitis of left shoulder: Code(s): M75.02 - Adhesive capsulitis of left shoulder Category: Medical Plan: This is a 44-year-old woman with fibromyalgia and left shoulder adhesive capsulitis. Based on her records it seems that her external rotation is improving and she has some capsulitis with mild motion restriction which seems to be an improvement from prior. She does not feel any better and has had this ongoing for a year. The primary problem however is that she has significant fibromyalgia and I think operative intervention would back fire and not be helpful and as a result is not indicated. I discussed this with her. I recommend a pentecostalism of her scapular mechanics and continued strengthening exercises. She understands and will return to see me if needed. Coding Level of Care Code Est Pt Level 4 (28533) Diagnoses Adhesive capsulitis of left shoulder M75.02
== END 2025-01-27 14:16 | disposition home or self-care (01) ==
LOC: HO.HOS 13:52
PROVIDERS: PCP Internal Medicine; Visit Provider Orthopaedic Surgery
DX: M75.02 Adhesive capsulitis of left shoulder (principal)
CPT/HCPCS: 99214

== ENCOUNTER → 2025-01-27 13:51 | Outpatient (BNVA) | payer OTHER, SELFPAY | PROVIDERS: PCP Internal Medicine; Visit Provider Orthopaedic Surgery | DX: M75.02 Adhesive capsulitis of left shoulder (principal) | CPT/HCPCS: 99212 ==

== ENCOUNTER 2025-01-30 08:34 | Outpatient (REF) | payer OTHER, SELFPAY ==
--- NOTE | ~2025-01-30 | XR_ITS ---
EXAMINATION: XR CERVICAL SPINE 2-3 VIEWS HISTORY: M54.2 - Cervicalgia COMPARISON: Comparison is made with the prior examination dated 08/28/2018. FINDINGS: AP, lateral, swimmer's, and open-mouth odontoid views of the cervical spine are submitted. Osseous mineralization is normal. Seven cervical vertebral bodies are identified maintaining normal height and alignment without evidence of fracture or subluxation. There is mild anterior spurring at multiple levels. The intervertebral disc spaces are preserved. The odontoid and lateral masses of C1 are intact. There is no prevertebral soft tissue swelling. XR/XR cervical spine 3V IMPRESSION: Mild degenerative changes. Electronically signed by: Helder Lazaro MD 01/30/2025 09:14 AM DIONNE
== END 2025-01-30 08:35 | disposition home or self-care (01) ==
LOC: HO.HOSX 08:34
PROVIDERS: PCP Internal Medicine; Visit Provider Physical Medicine & Rehabilitation
DX: M54.2 Cervicalgia (principal); R20.0 Anesthesia of skin; R20.2 Paresthesia of skin
CPT/HCPCS: 72040; 99202

== ENCOUNTER 2025-01-30 08:34 | Outpatient (AMB) | payer OTHER, SELFPAY ==
--- NOTE | 2025-01-30 08:36 | A.OFFVIS_ITS ---
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 Patient was referred by her PCP, 11/13/23. Patient has had a MRI of shoulder on 12/05/23 and 03/12/24. At today's visit she states that for the past year she has had left shoulder pain and for the past five months she has had neck pain that radiates into the upper/mid back. Patient states that she has tried physical therapy at [facility] and had injections with no relief, AH. She reports that she has sporadic numbness in her left middle,ring and pinky finger. Sewer Line Repairer Required: Yes Sewer Line Repairer Services: Sewer Line Repairer Present Sewer Line Repairer Name: [id number] Allergies non known allergies Allergy (Unknown, Uncoded 03/05/24 15:19) none Medication List - Last Reconciled 01/30/25 by Jackie Ordonez MD acetaminophen 1,000 mg (2 x 500 mg) PO Q6H PRN amitriptyline 10 mg PO BEDTIME 90 days amlodipine (Norvasc) 5 mg PO DAILY 90 days baclofen 10 mg PO TID clonidine HCl 0.1 mg PO TID cyanocobalamin (vitamin B-12) (Vitamin B-12) 1,000 mcg PO DAILY ferrous sulfate 325 mg PO DAILY 90 days gabapentin 800 mg PO TID 30 days hydroxyzine pamoate 25 mg PO BID lidocaine 5% 1 patch topical DAILY metoprolol tartrate (Lopressor) 25 mg (1/2 x 50 mg) PO DAILY 90 days omeprazole 40 mg PO DAILY tramadol 50 mg PO Q4-6H PRN 30 days zolpidem ER 12.5 mg PO BEDTIME PRN 30 days HPI Comments Details: Been following ortho for left shoulder adhesive capsulitis. Also has history of fibromyalgia. No past imaging for cervical. She qualifies that the pain is always sharp and starting from left shoulder. When the pain is severe, it would affect the neck area. But then she says she can have neck pain without the shoulder pain. Always left sided. It is hard to state which pain shoots down to the arm or hand. Though neck also can go over left face and breast, down to arm. Numbness on left 3rd-5th digits, usually at night and when she wakes up. [facility] Medical History (Updated 01/30/25 @ 08:54 by Jackie Ordonez MD) Iron deficiency anemia due to chronic blood loss Abnormal ECG Fibromyalgia Primary insomnia Essential hypertension Surgical History (Updated 03/05/24 @ 15:26 by Lorena Figueredo MD) H/O elbow surgery Hx of tubal ligation No pertinent past surgical history Family History (Updated 03/05/24 @ 15:27 by Lorena Figueredo MD) Mother No problems noted. Father Diabetes mellitus Cancer Social History Household Members: Significant Other and Children Housing: Apartment Alcohol intake: never Patient Tobacco Use Status: Former Tobacco user Tobacco use type: Cigarette e-Cigarette/Vaping Use: Never Used Second Hand Smoke Exposure: No service: No Current occupational status: employed Current occupation: [employer]ICE, right hand dominant Cognitive needs: No Hearing needs: No Vision needs: No Female Reproductive History Menstrual Age of Menarche: 18 Review of Systems Const All systems reviewed & are unremarkable except as noted in HPI and below Physical Exam Exam Exam: Constitutional: Patient appears to be in no acute distress, well nourished and well developed. Patient was appropriately conversant and oriented. Good historian. MSK: Inspection reveals appropriate head and neck positioning. Tender on left upper trapezius. Cervical ROM was full. Spurling's sign negative. Limited left shoulder forward flexion and abduction, -10 degrees to full. Strength is 5/5 in all muscle groups tested. No increased tone noted. Neurological: Neurologic examination of the upper and lower extremities was nonfocal with intact sensation, muscle stretch reflexes and without focal motor deficits . Yoon?s negative bilaterally. Babinski was down going bilaterally. Clonus was negative. Gait is non-antalgic without loss of balance. Vital Signs: BMI result Body Mass Index 30.1 Results Reviewed Results Reviewed: I reviewed records from the following: Ortho Assessment & Plan Assessment & Plan (1) Neck pain on left side: Code(s): M54.2 - Cervicalgia Category: Medical (2) Numbness and tingling in left hand: Code(s): R20.0 - Anesthesia of skin; R20.2 - Paresthesia of skin Category: Medical Plan History of fibromyalgia and left shoulder adhesive capsulitis. Suspect pain is myofascial. No signs of cervical radiculopathy or myelopathy on exam. We will send for cervical x-ray for completion, ruling out C5-6 or C6-7 disc space narrowing. Rule out ulnar neuropathy that can explain the numbness in her smaller fingers when she sleeps. EMG to be scheduled. Assessment and plan discussed with patient, and patient was agreeable. All questions were answered thoroughly. Jackie Ordonez MD, KIMI Board Certified, [place] [employer] Medicine and Rehabilitation (ABPMR) Board Certified, [place] Board [employer] Electrodiagnostic Medicine (ABEM) Orders: Orders XR cervical spine 3V Today M54.2 - Cervicalgia, R20.0 - Anesthesia of skin, R20.2 - Paresthesia of skin NE nerve conduction velocity Today M54.2 - Cervicalgia, R20.0 - Anesthesia of skin, R20.2 - Paresthesia of skin NE electromyogram (EMG) Today M54.2 - Cervicalgia, R20.0 - Anesthesia of skin, R20.2 - Paresthesia of skin Coding Level of Care Code New Pt Level 4 (18384) Diagnoses Neck pain on left side M54.2 Numbness and tingling in left hand R20.0; R20.2
[2025-01-30 08:43] VITALS: BMI 30.1
== END 2025-01-30 09:08 | disposition home or self-care (01) ==
LOC: HO.HOS 08:35
PROVIDERS: PCP Internal Medicine; Visit Provider Physical Medicine & Rehabilitation
DX: M54.2 Cervicalgia (principal); R20.0 Anesthesia of skin; R20.2 Paresthesia of skin
CPT/HCPCS: 99204

== ENCOUNTER → 2025-01-30 08:59 | Outpatient (BNV) | payer OTHER, SELFPAY | PROVIDERS: PCP Internal Medicine; Visit Provider Radiology Diagnostic Radiology | DX: M50.30 Other cervical disc degeneration, unspecified cervical region (principal) | CPT/HCPCS: 72040 ==

== ENCOUNTER 2025-03-03 13:59 | Outpatient (AMB) | payer OTHER, SELFPAY ==
--- NOTE | 2025-03-03 14:02 | MHC.OFFVIS ---
Vital Signs 03/03/25 14:09 Height 5 ft 3 in Weight 160 lb 2 oz BMI 28.4 BP 178/89 H Blood Pressure Location Lt brachial Position Sitting Pulse 57 Pulse Source Pulse Oximeter Pulse Oximetry (%) 100 Oxygen Delivery Method Room Air Intake Visit Reasons: Fibromyalgia Intake Note: Pain today 10/03 Spd Tech Required: No Accompanied by: Self / Same As Patient Allergies non known allergies Allergy (Unknown, Uncoded 03/05/24 15:19) none HPI Comments Details: The patient is a 44 year old female presenting for an evaluation of her chronic left shoulder pain. She has been experiencing left shoulder, neck and back pain for over one year. She has a history of adhesive capsulitis, and an MRI of the shoulder showed mild supraspinatus tendinosis and mild acromioclavicular arthritis. Previous injections have been unhelpful, with the most recent one in April providing only three days of relief. She has completed physical therapy twice this year, but it provided no help and sometimes increased her pain. Her medical history is significant for fibromyalgia, for which she takes gabapentin and amitriptyline and tramadol for joint pain. She has a new diagnosis of osteopoikilosis causing joint pain and also reports left knee pain. Other chronic conditions include hypertension, managed with metoprolol and amlodipine, depression and anxiety. 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 Her current pain medications include Tylenol and tramadol, which she reports do not provide much relief. She also takes baclofen without significant benefit. - Onset and Duration: Pain has been present for one year. - Location: The most severe pain is in the left shoulder, which radiates to the neck on the left side. - Associated Pain: The patient also reports pain in her back and left knee. - Quality: The pain is described as sharp, stinging, sore, hurting, and achy. - Timing: The pain is constant and is worse at night. - Severity: The pain is rated as 10/10. - Exacerbating Factors: Heavy lifting and patient care duties as a RESHIPPING CLERK increase her symptoms. - Interference with Function: The pain prevents her from sleeping on her left side. - Affect: The patient's pain is worse at night and interferes with her ability to sleep on her left side. - Analgesia: She currently takes tramadol, gabapentin, baclofen, amitriptyline, and Tylenol, but reports they do not help much. - Adverse Effects: None with current medications. - Activities of Daily Living: Her work as a RESHIPPING CLERK, which involves heavy lifting, is difficult due to her pain. - Aberrant Drug Related Behaviors: None discussed. [facility] Medical History Iron deficiency anemia due to chronic blood loss Abnormal ECG Fibromyalgia Primary insomnia Essential hypertension Surgical History H/O elbow surgery Hx of tubal ligation No pertinent past surgical history Family History Mother No problems noted. Father Diabetes mellitus Cancer Social History Household Members: Significant Other and Children Housing: Apartment Alcohol intake: never Patient Tobacco Use Status: Former Tobacco user Tobacco use type: Cigarette e-Cigarette/Vaping Use: Never Used Second Hand Smoke Exposure: No service: No Current occupational status: employed Current occupation: RESHIPPING CLERK, right hand dominant Cognitive needs: No Hearing needs: No Vision needs: No Female Reproductive History Menstrual Age of Menarche: 18 Review of Systems Const Details: - Musculoskeletal: Reports chronic pain in the left shoulder, neck, and back. - Musculoskeletal: Also reports left knee pain and generalized joint pain associated with a new diagnosis of osteopoikilosis. - Neurological: Reports taking gabapentin for fibromyalgia. - Psychiatric: Reports seeing a provider for depression and also has anxiety. - Psychiatric: Reports that pain is worse at night and she cannot sleep on her left side. All systems reviewed & are unremarkable except as noted in HPI and below Physical Exam Vital Signs: Last Vital Signs Pulse 57 03/03/25 14:09 BP 178/89 H 03/03/25 14:09 Pulse Ox 100 03/03/25 14:09 Oxygen Delivery Method Room Air 03/03/25 14:09 BMI result Body Mass Index 28.4 General: Appears afebrile. Alert and oriented. Mood and affect appropriate. Follows and participates in conversation appropriately. Respiratory effort is unlabored. No cough. Able to transition from sit to stand unassisted. Ambulates with bilaterally normal heel strike and toe off. Multiple widespread TTPs 16/16 bilaterally, including upper and lower extremities. Neck Neck: Yes full ROM, Yes supple, Yes anterior neck swelling, Yes no JVD, No prominent supraclavicular fat pad and No prominent dorsocervical fat pad Back/Spine/Pelvis Cervical Spine: cervical ROM normal, No Lhermitte's sign positive, cervical muscular tenderness, pain with cervical ROM, No Cervical spine scars present, No Cervical spine tenderness and No step off deformity Thoracic/Lumbar Spine: thoracic and lumbar spine normal to inspection, pain with thoraco-lumbar ROM, No thoracic spinal tenderness and No lumbar spinal tenderness Extrem General: Yes capillary refill normal, Yes no clubbing, cyanosis or edema and Yes no calf tenderness Left upper extremity: shoulder/upper arm (Limited ROM due to pain, supination reproduces moderate pain) Details: inspection abnormal, tenderness Location: of the A-C joint, over the biceps tendon and over the subacromial bursa and crepitus; no swelling, no ecchymosis, no deformity and no unsual warmth Results Reviewed Results Reviewed: XR CERVICAL SPINE 2-3 VIEWS 01/30/25 HISTORY: M54.2 - Cervicalgia COMPARISON: Comparison is made with the prior examination dated 08/28/2018. FINDINGS: AP, lateral, swimmer's, and open-mouth odontoid views of the cervical spine are submitted. Osseous mineralization is normal. Seven cervical vertebral bodies are identified maintaining normal height and alignment without evidence of fracture or subluxation. There is mild anterior spurring at multiple levels. The intervertebral disc spaces are preserved. The odontoid and lateral masses of C1 are intact. There is no prevertebral soft tissue swelling. IMPRESSION: Mild degenerative changes. MR SHOULDER WITHOUT CONTRAST LEFT 03/12/24 CLINICAL INFORMATION: Adhesive capsulitis of left shoulder. Pain increasing since 3.5 months. Numbness. COMPARISON: MR shoulder left without contrast 12/05/2023. TECHNIQUE: MRI of the shoulder without contrast was performed on a high-field scanner. FINDINGS: ROTATOR CUFF: Mild supraspinatus tendinosis. No tear is seen. Infraspinatus, teres minor, subscapularis are intact. No muscle atrophy or fatty infiltration. BICEPS: Intact. CORACOACROMIAL ARCH: The undersurface of the acromion is flat with no subacromial spur. Mild acromioclavicular arthritis. Trace subacromial subdeltoid bursitis. LABRUM/CAPSULE: No labral tear is seen. Inferior glenohumeral ligament/capsule is slightly thickened and mildly heterogeneous. GLENOHUMERAL JOINT/MARROW: No fracture. No focal chondral loss. Redemonstrated multiple small low signal foci suggesting bone islands. No significant effusion. IMPRESSION: 1. Mild supraspinatus tendinosis. No rotator cuff tear is seen. 2. Mild acromioclavicular arthritis. Trace subacromial subdeltoid bursitis. 3. Findings in the inferior glenohumeral ligament/capsule, could be related to lack of distention versus capsulitis in the appropriate clinical circumstance. XR KNEE, LEFT 08/04/23 CLINICAL INFORMATION: Left knee pain for 4 months COMPARISON: X-ray left knee on 06/25/2009 TECHNIQUE: Four views of the left knee. FINDINGS: BONES: Bony structures are intact. Unchanged multiple focal sclerotic lesions are seen in distal left femur and proximal left tibia and left fibular head. There is no focal bone destruction or periosteal reaction seen. JOINTS: Alignment of joints is normal. SOFT TISSUE: Soft tissue is normal. No radiopaque foreign body or abnormal air collection is seen. IMPRESSION: 1. Unchanged osteopoikilosis. 2. No fracture or dislocation or signs of osteomyelitis are found. Assessment & Plan Assessment & Plan (1) Patellofemoral pain syndrome of left knee: Code(s): M22.2X2 - Patellofemoral disorders, left knee Category: Medical (2) Adhesive capsulitis of left shoulder: Code(s): M75.02 - Adhesive capsulitis of left shoulder Category: Medical (3) Neck pain on left side: Code(s): M54.2 - Cervicalgia Category: Medical (4) Fibromyalgia: Code(s): M79.7 - Fibromyalgia Category: Medical (5) Chronic left shoulder pain: Code(s): M25.512 - Pain in left shoulder; G89.29 - Other chronic pain Category: Medical (6) Osteoarthritis of left shoulder: Code(s): M19.012 - Primary osteoarthritis, left shoulder Category: Medical (7) Cervical spondylosis: Code(s): M47.812 - Spondylosis without myelopathy or radiculopathy, cervical region Category: Medical Plan The patient will be scheduled for a left shoulder intra-articular steroid injection under local and fluoroscopy guidance as initial steps. Expectations, risks and benefits were reviewed. Patient is aware she will be contacted to schedule this procedure. We also discussed diagnostic nerve blocks for potential radiofrequency ablation for a longer term pain relief for left shoulder pain, as well as her chronic neck and left knee pain. She was informed that if her insurance changes in the near future, she may become a candidate for peripheral nerve stimulation system. Informational pamphlets were provided to patient. For medication management, Celebrex will be prescribed to address her inflammatory joint pain from tendinitis and arthritis. Additionally, her Tylenol will be changed to Tylenol Arthritis extended release. Side effects and precautions were discussed with patient. The patient was advised to continue lifestyle modifications including staying hydrated and active while avoiding heavy lifting, which exacerbates her pain. A follow-up appointment will be scheduled after the injection to assess her response to the procedure. All questions and concerns have been answered and patient agreed with the treatment plan. Patient was informed and verbally consented to the use of an ambient scribe for clinic note documentation during this visit. Medications: New celecoxib (Celebrex) Take it with food and full glass of water 200 mg PO BID PRN 60 caps 0RF pain M22.2X2 - Patellofemoral disorders, left knee, M25.512 - Pain in left shoulder, M75.02 - Adhesive capsulitis of left shoulder acetaminophen ER (Tylenol Arthritis Pain) 1,300 mg (2 x 650 mg) PO Q12H PRN 120 tabs 0RF pain 30 days M25.512 - Pain in left shoulder, M75.02 - Adhesive capsulitis of left shoulder Discontinued acetaminophen Discontinued Reason: Doctor's Order 1,000 mg (2 x 500 mg) PO Q6H PRN 30 caps 0RF pain M25.562 - Pain in left knee Coding Level of Care Code New Pt Level 4 (98531) Diagnoses Patellofemoral pain syndrome of left knee M22.2X2 Adhesive capsulitis of left shoulder M75.02 Neck pain on left side M54.2 Fibromyalgia M79.7 Chronic left shoulder pain M25.512; G89.29 Osteoarthritis of left shoulder M19.012 Cervical spondylosis M47.812
[2025-03-03 14:09] VITALS: BP 178/89; PULSE 57; O2SAT 100; BMI 28.4
== END 2025-03-03 14:43 | disposition home or self-care (01) ==
PROVIDERS: PCP Internal Medicine; Visit Provider Nurse Practitioner Family
DX: M22.2X2 Patellofemoral disorders, left knee (principal); M75.02 Adhesive capsulitis of left shoulder; M54.2 Cervicalgia; M79.7 Fibromyalgia; M25.512 Pain in left shoulder; G89.29 Other chronic pain; M19.012 Primary osteoarthritis, left shoulder; M47.812 Spondylosis without myelopathy or radiculopathy, cervical region
CPT/HCPCS: 99204

== ENCOUNTER → 2025-03-03 13:59 | Outpatient (BNVA) | payer OTHER, SELFPAY | PROVIDERS: PCP Internal Medicine; Visit Provider Nurse Practitioner Family | DX: M19.012 Primary osteoarthritis, left shoulder (principal); M22.2X2 Patellofemoral disorders, left knee; M75.02 Adhesive capsulitis of left shoulder; M47.812 Spondylosis without myelopathy or radiculopathy, cervical region; G89.29 Other chronic pain; M79.7 Fibromyalgia | CPT/HCPCS: 99202 ==